=== PATIENT | male | born 1975 | race Native Hawaiian/Other Pacific Islander ===

== ENCOUNTER 2018-03-27 15:37 | Emergency (ER) | payer BC ==
--- NOTE | 2018-03-27 15:58 | ED Physician Documentation ---
PD HPI URI - Stated complaint Stated Complaint: COUGH/CONGESTION - Chief complaint Chief Complaint: Resp - History obtained from History obtained from: Patient - History of Present Illness Timing - onset: How many weeks ago (1-2) Timing duration: Weeks (1-2) Timing details: Gradual onset, Still present Associated symptoms: Nasal congestion, Rhinorrhea, Sinus pain, Productive cough , Dyspnea. No: Fever, Ear pain, Sore throat, Hemoptysis, Chest pain Contributing factors: No: Sick contact, Travel, COPD / asthma Recently seen: Clinic (3 weeks ago for sinus infection that mostly cleared and is worse again as well.) Review of Systems Constitutional: reports: Myalgias. denies: Fever, Chills Nose: reports: Congestion, Sinus pressure / pain. denies: Rhinorrhea / runny nose Throat: denies: Sore throat Cardiac: denies: Chest pain / pressure, Palpitations Respiratory: reports: Dyspnea, Cough, Wheezing GI: denies: Abdominal Pain, Nausea, Vomiting, Diarrhea Skin: denies: Rash, Lesions PD PAST MEDICAL HISTORY - Past Medical History Cardiovascular: None Respiratory: None Neuro: None Endocrine/Autoimmune: None - Past Surgical History Past Surgical History: No - Present Medications Home Medications: Ambulatory Orders Medication Instructions Recorded Confirmed Albuterol Sulf [Ventolin Hfa 2 - 3 puffs INH Q4HR PRN #1 inhaler 03/27/18 Inhaler] Benzonatate [Tessalon] 100 mg PO TID PRN #25 capsule 03/27/18 Dexamethasone [Decadron] 4 mg PO DAILY #5 tablet 03/27/18 Doxycycline Monohydrate 100 mg PO BID #14 tablet 03/27/18 - Allergies Allergies/Adverse Reactions: Allergies Allergy/AdvReac Type Severity Reaction Status Date / Time No Known Drug Allergies Allergy Verified 03/27/18 15:46 - Social History Does the pt smoke?: No Smoking Status: Never smoker Does the pt drink ETOH?: Yes Does the pt have substance abuse?: No - Immunizations Immunizations are current?: Yes - POLST Patient has POLST: No PD ED PE NORMAL - Vitals Vital signs reviewed: Yes - General General: Alert and oriented X 3, No acute distress, Well developed/nourished - HEENT HEENT: Ears normal, Pharynx benign - Neck Neck: Supple, no meningeal sign, No adenopathy - Cardiac Cardiac: RRR, No murmur - Respiratory Respiratory: Clear bilaterally - Abdomen Abdomen: Soft, Non tender - Derm Derm: Normal color, Warm and dry, No rash - Extremities Extremities: No tenderness to palpate, Normal ROM s pain, No edema, No calf tenderness / cord - Neuro Neuro: Alert and oriented X 3, No motor deficit, Normal speech Results - Vitals Vitals: Oxygen O2 Source Room air PD MEDICAL DECISION MAKING - ED course Complexity details: considered differential (has had prolonged URI symptoms with now productive sputum and worse cough. ), d/w patient - Sepsis Event Vital Signs: Oxygen O2 Source Room air Departure - Departure Disposition: Home, Self Care Clinical Impression: Acute bacterial bronchitis Condition: Stable Record reviewed to determine appropriate education?: Yes Instructions: ED Upper Resp Infec Abx Tx Prescriptions: Albuterol Sulf [Ventolin Hfa Inhaler] 2 - 3 puffs INH Q4HR PRN #1 inhaler PRN Reason: Shortness Of Air/Wheezing Benzonatate [Tessalon] 100 mg PO TID PRN #25 capsule PRN Reason: Cough Dexamethasone [Decadron] 4 mg PO DAILY #5 tablet Doxycycline Monohydrate 100 mg PO BID #14 tablet Comments: Use albuterol inhaler 2 puffs or 3 puffs 4 times a day for the next 7-10 days and then extra times if needed for wheezing and cough. Decadron steroid anti- inflammatory daily for 5 days. Doxycycline twice daily for a week for the infection. Add Tessalon if needed for cough. Drink lots of fluids. Recheck if not improving over the next several days to week. Discharge Date/Time: 03/27/18 16:35
[2018-03-27 16:37] VITALS: BP 136/99
== END 2018-03-27 16:35 | disposition home or self-care (01) ==
LOC: ED 15:37
DX: J20.8 Acute bronchitis due to other specified organisms (principal); B96.89 Other specified bacterial agents as the cause of diseases classified elsewhere
CPT/HCPCS: 99283

== ENCOUNTER 2018-12-02 16:10 | Emergency (ER) | payer BC ==
[2018-12-02 16:34] LABS: BILIRUBIN,URINE NEGATIVE (NEGATIVE); GLUCOSE, URINE (UA) 100 mg/dL (NEGATIVE); KETONES,URINE (UA) NEGATIVE (NEGATIVE); LEUKOCYTE ESTERASE, URINE NEGATIVE (NEGATIVE); NITRITE,URINE NEGATIVE (NEGATIVE); OCCULT BLOOD,URINE SMALL (NEGATIVE); PROTEIN,URINE NEGATIVE (NEGATIVE); UROBILINOGEN,URINE 0.2 (NORMAL) E.U./dL (NORMAL)
[2018-12-02] MEDS ORDERED: SODIUM CHLORIDE 0.9% 1,000 ML IV ONE (16:35)
--- NOTE | 2018-12-02 16:40 | ED Physician Documentation ---
History of Present Illness - Stated complaint Stated Complaint: RT SIDE PX - Chief complaint Chief Complaint: Abd Pain - History obtained from History obtained from: Patient - Additonal information Additional information: Patient is a 42-year-old male with history of nephrolithiasis. Patient reports several hour ago onset of right-sided flank and abdominal pain without associated vomiting, diarrhea or stool changes, urinary changes, fever, chills. Patient does report mild nausea. Patient states symptoms are similar to previous. Patient denies any particular worsening or improving interventions for symptoms. Review of Systems Constitutional: denies: Fever GI: reports: Abdominal Pain, Nausea. denies: Vomiting, Diarrhea : denies: Dysuria Musculoskeletal: reports: Back pain PD PAST MEDICAL HISTORY - Past Medical History Past Medical History: Yes Cardiovascular: None Respiratory: None Neuro: None Endocrine/Autoimmune: None : Kidney stones - Past Surgical History Past Surgical History: No - Present Medications Home Medications: Ambulatory Orders Medication Instructions Recorded Confirmed No Known Home Medications 12/02/18 12/02/18 - Allergies Allergies/Adverse Reactions: Allergies Allergy/AdvReac Type Severity Reaction Status Date / Time No Known Drug Allergies Allergy Verified 12/02/18 16:20 - Social History Does the pt smoke?: No Smoking Status: Never smoker Does the pt drink ETOH?: Yes Does the pt have substance abuse?: No - Immunizations Immunizations are current?: Yes - POLST Patient has POLST: No PD ED PE NORMAL - General General: Alert and oriented X 3, No acute distress, Well developed/nourished - HEENT HEENT: Atraumatic - Cardiac Cardiac: RRR, No murmur - Respiratory Respiratory: No respiratory distress - Abdomen Abdomen: Normal bowel sounds, Soft, Non distended, Other (Mild right upper quadrant tenderness without Haywood sign or rebound present) - Back Back: Other (Positive right CVA tenderness) - Derm Derm: Normal color, Warm and dry, No rash - Extremities Extremities: No deformity - Neuro Neuro: Alert and oriented X 3, No motor deficit, No sensory deficit - Psych Psych: Normal mood, Normal affect Results - Vitals Vitals: Vital Signs - 24 hr 12/02/18 12/02/18 12/02/18 16:19 17:30 19:04 Temperature 37 C 36.6 C Heart Rate 112 H 79 80 Respiratory 20 24 16 Rate Blood Pressure 127/89 H 111/76 110/78 O2 Saturation 98 98 98 Oxygen O2 Source Room air - Labs Labs: Laboratory Tests 12/02/18 12/02/18 12/02/18 16:30 16:45 16:45 WBC 5.4 RBC 5.16 Hgb 15.6 Hct 46.2 MCV 89.6 MCH 30.2 MCHC 33.7 RDW 12.1 Plt Count 215 MPV 6.8 L Neut # (Auto) 2.9 Lymph # (Auto) 1.7 [place] # (Auto) 0.5 Eos # (Auto) 0.2 Baso # (Auto) 0.0 Absolute Nucleated RBC 0.00 Nucleated RBC % 0.0 Sodium 138 Potassium 3.4 L Chloride 104 Carbon Dioxide 25 Anion Gap 9.0 BUN 19 Creatinine 1.1 Estimated GFR (MDRD) 74 L Glucose 138 H Calcium 8.9 Urine Color YELLOW Urine Clarity HAZY Urine pH 7.0 Ur Specific [place] 1.015 Urine Protein NEGATIVE Urine Glucose (UA) 100 H Urine Ketones NEGATIVE Urine Occult Blood SMALL H Urine Nitrite NEGATIVE Urine Bilirubin NEGATIVE Urine Urobilinogen 0.2 (NORMAL) Ur Leukocyte Esterase NEGATIVE Urine RBC 0-5 Urine WBC 0-3 Ur Squamous Epith Cells NONE SEEN Urine Bacteria None Seen Ur Microscopic Review INDICATED Urine Culture Comments NOT INDICATED PD MEDICAL DECISION MAKING - ED course Complexity details: considered differential, d/w patient ED course: Concerning for nephrolithiasis this given patient's history of nephrolithiasis, symptomatology, and physical exam. Vital signs within normal limits upon arrival except for mild tachycardia, which was not present on exam. Feel this could be related to discomfort, however, patient declines pain medications. Physical exam reveals right CVA tenderness that radiates to right abdomen. I have lower suspicion for other intra-abdominal pathology such as gallstones, liver disease, small bowel obstruction, AAA, diverticulitis, but considered. Also have lower suspicion for testicular/groin pathology, but considered. Urinalysis obtained which was relatively unremarkable except for presence of glucose. Lab work also obtained, which was relatively unremarkable except for elevated glucose. CT without contrast obtained which revealed no stones on the right and small, nonobstructing stones on the left. No other significant pathology noted. Discussed results and recommendations with patient including findings of glucose elevation and glucose in the urine and directed patient to primary care physician for follow-up and further testing. Also discussed other supportive cares, return precautions, appropriate follow-up for his back and abdominal pain. At this time, feel patient is safe to discharge home and patient is agreeable to this plan. Departure - Departure Disposition: 01 Home, Self Care Clinical Impression: Abdominal pain Condition: Good Instructions: ED Abdominal Pain Unkn Cause Male Follow-Up: your,doctor [Other] - Within 3 Days Comments: Recommend avoidance of alcohol, tobacco. May use ibuprofen/Tylenol for any additional discomfort. Recommend hydration with Powerade/Gatorade and advancing diet as tolerated. Please follow-up with primary care physician in the next 2- 3 days and return to ED sooner if explains worsening symptoms or other concerns. Discharge Date/Time: 12/02/18 19:03
[2018-12-02 16:41] LABS: CLARITY,URINE HAZY (CLEAR)
[2018-12-02 16:45] LABS: BACTERIA,URINE None Seen /HPF (None Seen); RBC,URINE 0-5 /HPF (0-5); SQUAMOUS EPITHELIAL CELL,UR NONE SEEN (<= Few)
[2018-12-02 17:03] LABS: BASOPHILS % (AUTO) 0.6 %; EOSINOPHILS # (AUTO) 0.2 10^3/uL (0.0-0.7); EOSINOPHILS % (AUTO) 3.8 %; HGB - HEMOGLOBIN 15.6 g/dL (14.0-18.0); LYMPHOCYTES # (AUTO) 1.7 10^3/uL (1.5-3.5); LYMPHOCYTES % (AUTO) 31.2 %; MEAN CORPUSCULAR HEMOGLOBIN 30.2 pg (27.0-31.0); MEAN CORPUSCULAR HGB CONC 33.7 g/dL (32.0-36.0); MEAN CORPUSCULAR VOLUME 89.6 fL (80.0-94.0); MEAN PLATELET VOLUME 6.8 fL (7.4-11.4); MONOCYTES # (AUTO) 0.5 10^3/uL (0.0-1.0); MONOCYTES % (AUTO) 9.8 %; NEUTROPHILS # (AUTO) 2.9 10^3/uL (1.5-6.6); NEUTROPHILS % (AUTO) 54.6 %; PLT - PLATELET COUNT 215 10^3/uL (130-450); RED BLOOD COUNT 5.16 10^6/uL (4.70-6.10); RED CELL DISTRIBUTION WIDTH 12.1 % (12.0-15.0); WHITE BLOOD COUNT 5.4 x10^3/uL (4.8-10.8)
[2018-12-02 17:13] LABS: CALCIUM 8.9 mg/dL (8.5-10.3); CREATININE 1.1 mg/dL (0.6-1.2)
--- NOTE | 2018-12-02 18:50 | CT Report ---
Reason: kidney stone Procedure Date: 12/02/2018 Accession Number: [id number] / [id number] Procedure: CT - Abdomen/Pelvis WO CPT Code: FULL RESULT: EXAM: CT ABDOMEN AND PELVIS (CT KUB) EXAM DATE: 12/02/2018 05:14 PM. CLINICAL HISTORY: Kidney stone. Right flank pain. COMPARISONS: None. TECHNIQUE: Routine axial helical CT imaging was performed through the abdomen and pelvis without IV contrast. Reconstructions: Coronal and sagittal. In accordance with CT protocol optimization, one or more of the following dose reduction techniques were utilized for this exam: automated exposure control, adjustment of mA and/or KV based on patient size, or use of iterative reconstructive technique. FINDINGS: Lung Bases: Unremarkable. Right Kidney/Ureter: No stones, hydronephrosis, or hydroureter. No perinephric fat stranding. Left Kidney/Ureter: Nonobstructing 2 mm stone. No ureteral stones, hydronephrosis, or hydroureter. No perinephric fat stranding. Other Solid Organs: Noncontrast images of the solid organs are grossly unremarkable. Gallbladder/Bile Ducts: Unremarkable. Peritoneal Cavity: No free fluid, free air or lia adenopathy. Bowel is grossly unremarkable. Pelvic Organs: No bladder stones or wall thickening. Noncontrast images of the visualized pelvic organs are unremarkable. Vasculature: Unremarkable. Other: None. IMPRESSION: 1. Small nonobstructing left renal stone. 2. No ureteral stone or hydronephrosis. RADIA
[2018-12-02 19:04] VITALS: BP 110/78
== END 2018-12-02 19:03 | disposition home or self-care (01) ==
LOC: ED 16:10
DX: R10.9 Unspecified abdominal pain (principal); N20.0 Calculus of kidney; R81 Glycosuria; R73.9 Hyperglycemia, unspecified; Z87.442 Personal history of urinary calculi
CPT/HCPCS: 36415; 74176; 80048; 81001; 81003; 85025; 87086; 96360; 99283

== ENCOUNTER 2019-06-25 17:13 | Emergency (ER) | payer BC ==
[2019-06-25] MEDS ORDERED: KETOROLAC 30 MG/ML VIAL IVP STA (18:54)
[2019-06-25] MEDS ORDERED: SODIUM CHLORIDE 0.9% 1,000 ML IV ONE (18:54)
--- NOTE | 2019-06-25 18:55 | ED Physician Documentation ---
PD HPI HEADACHE - Stated complaint Stated Complaint: CAVAZOS - Chief complaint Chief Complaint: Neuro - History obtained from History obtained from: Patient - History of Present Illness Timing - onset: How many years ago (2) Timing - duration: Weeks (2) Timing - details: Gradual onset, Still present Location: Left Quality: Other (Pulsating) Associated symptoms: Stiff neck (Complains of his neck being stiff when he has the headache), Eye pain, Vision changes. No: Fever, Nausea, Vomiting, Weakness, Numbness, Syncope Worsened by: Light, Moving Recently seen: Not recently seen - Additional information Additional information: This is a 43-year-old man who presents with complaints that he has had a chronic headache for the past 2 years since he was seen in a medical facility in [facility] and diagnosed with a sinus infection. He says they put him on some antibiotics but he never followed up after that. Over the past 2 weeks the headache is gotten more severe happening every day he initially said it was constant but the headache is currently completely gone he just has his constant pain across the bridge of his nose that is been there for months. Feels like there is a pulsating behind the left eyeball and sometimes he has pain in the right eye and his vision gets blurry.. He says is been taking Tylenol on a least a daily basis. 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 He complains of a lot of postnasal drip and clear runny nose the nose is stuffy and sometimes he has traces of blood when he clears the mucus out. Occasionally he will pull yellow mucus into his throat and spit it out. Rates the pain across his nose right now is a 9 out of 10 and feels a "poking" up into the left eye from the side of his nose. He has not had fever. Denies nausea or vomiting. He complains of some heartburn that is a chronic issue. He denies any history of MRSA but says that he is newly developed hives after he exercises since he had a sinus infection. He also complains of pain down the right leg that he is treating with a chiropractor. He does occasionally drink alcohol denies use of other drugs and lives with a significant other. Review of Systems Constitutional: denies: Fever Eyes: reports: Other (Occasional blurry) Ears: denies: Ear pain, Drainage/discharge Nose: reports: Rhinorrhea / runny nose, Congestion, Sinus pressure / pain Throat: reports: Sore throat GI: reports: Other (Heartburn). denies: Nausea, Vomiting Skin: reports: Rash (Hives) Musculoskeletal: reports: Neck pain PD PAST MEDICAL HISTORY - Past Medical History Cardiovascular: None Respiratory: None Neuro: None Endocrine/Autoimmune: None : Kidney stones - Past Surgical History Past Surgical History: No - Present Medications Home Medications: Ambulatory Orders Medication Instructions Recorded Confirmed Mupirocin 0.5 inch TP BID #1 tube 06/25/19 - Allergies Allergies/Adverse Reactions: Allergies Allergy/AdvReac Type Severity Reaction Status Date / Time No Known Drug Allergies Allergy Verified 06/25/19 17:24 - Social History Does the pt smoke?: No Smoking Status: Never smoker Does the pt drink ETOH?: Yes Does the pt have substance abuse?: No - Immunizations Immunizations are current?: Yes - POLST Patient has POLST: No PD ED PE NORMAL - Vitals Vital signs reviewed: Yes - General General: Alert and oriented X 3, No acute distress, Well developed/nourished, Other (Lying in a dark room with his eyes closed) - HEENT HEENT: Atraumatic, PERRL, EOMI, Ears normal, Moist mucous membranes, Pharynx benign, Other (Pain with palpation over the left nostril. There is no swelling. There is no blood evident in the nostrils bilaterally. 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 # (Auto) 0.6 Eos # (Auto) 0.2 Baso # (Auto) 0.0 Absolute Nucleated RBC 0.00 Nucleated RBC % 0.0 Sodium 140 Potassium 3.9 Chloride 106 Carbon Dioxide 26 Anion Gap 8.0 BUN 18 Creatinine 0.8 Estimated GFR (MDRD) 107 Glucose 126 H Calcium 9.2 - Rads (name of study) ct head Radiology: See rad report PD MEDICAL DECISION MAKING - ED course Complexity details: reviewed results, re-evaluated patient, d/w patient ED course: CBC and BMP are normal. The head CT was negative. Patient was initially given a liter of fluids and 30 mg of Toradol IV when I went by the room he was still curled up on his side and stated that the headache it eased off a little bit it was about a 7 out of 10. He was then medicated with Reglan, Decadron, IV Tylenol and p.o. Flexeril. I am suspicious he may actually have an inranasal lesion and plan to treat with Mupiroin intra-nasal. Recommend f/u with primary provider for further work-up of his chronic headaches. 2230: Patient fell asleep and when he was awakened he was completely pain-free. Recommend he follow-up with a primary care provider we discussed how to use the intranasal mupirocin. Departure - Departure Disposition: 01 Home, Self Care Clinical Impression: Headache Qualifiers: Headache type: unspecified Headache chronicity pattern: chronic headache Intractability: not intractable Qualified Code(s): R51 - Headache Condition: Good Instructions: ED Cephalgia Unspecified Follow-Up: [facility] [Provider Group] Prescriptions: Mupirocin 0.5 inch TP BID #1 tube Comments: Use the [place] ointment twice a day for 5 days. May take ibuprofen if needed for the headache. Establish with a primary care provider for further work-up and management of your headaches. Forms: Activity restrictions Discharge Date/Time: 06/25/19 22:44
[2019-06-25 19:33] LABS: BASOPHILS % (AUTO) 0.5 %; EOSINOPHILS # (AUTO) 0.2 10^3/uL (0.0-0.7); HGB - HEMOGLOBIN 15.1 g/dL (14.0-18.0); LYMPHOCYTES # (AUTO) 1.9 10^3/uL (1.5-3.5); LYMPHOCYTES % (AUTO) 34.2 %; MEAN CORPUSCULAR HEMOGLOBIN 30.4 pg (27.0-31.0); MEAN CORPUSCULAR VOLUME 92.3 fL (80.0-94.0); MEAN PLATELET VOLUME 8.7 fL (7.4-11.4); MONOCYTES # (AUTO) 0.6 10^3/uL (0.0-1.0); MONOCYTES % (AUTO) 10.9 %; NEUTROPHILS # (AUTO) 2.8 10^3/uL (1.5-6.6); NEUTROPHILS % (AUTO) 50.2 %; PLT - PLATELET COUNT 197 10^3/uL (130-450); RED BLOOD COUNT 4.96 10^6/uL (4.70-6.10); RED CELL DISTRIBUTION WIDTH 11.4 % (12.0-15.0); WHITE BLOOD COUNT 5.5 x10^3/uL (4.8-10.8)
[2019-06-25 19:41] LABS: CALCIUM 9.2 mg/dL (8.5-10.3); CREATININE 0.8 mg/dL (0.6-1.2)
--- NOTE | 2019-06-25 19:50 | CT Report ---
Reason: headache and sinus pressure Procedure Date: 06/25/2019 Accession Number: [id number] / [id number] Procedure: CT - HEAD WO CPT Code: FULL RESULT: EXAM: CT HEAD EXAM DATE: 06/25/2019 07:07 PM. CLINICAL HISTORY: Headache and sinus pressure. COMPARISON: None. TECHNIQUE: Multiaxial CT images were obtained from the foramen magnum to the vertex. Reformats: Sagittal and coronal. IV contrast: None. In accordance with CT protocol optimization, one or more of the following dose reduction techniques were utilized for this exam: automated exposure control, adjustment of mA and/or KV based on patient size, or use of iterative reconstructive technique. FINDINGS: PARENCHYMA: No acute hemorrhage, transcortical infarction or mass. Normal lew-white differentiation. EXTRA-AXIAL SPACES: No extra-axial fluid collections. No midline shift. VENTRICLES/SULCI: Normal for patient age. VASCULAR STRUCTURES: The visible vascular structures are unremarkable. SINUSES: The visible paranasal sinuses and mastoid air cells are unremarkable. ORBITS: Unremarkable. BONES: No displaced acute calvarial fracture. OTHER: None. IMPRESSION: No acute intracranial findings. RADIA
[2019-06-25] MEDS ORDERED: DEXAMETHASONE 10 MG/ML VIAL IVP STA (21:00)
[2019-06-25] MEDS ORDERED: ACETAMINOPHEN 1,000 MG/100 ML 100 ML IV STA (21:01)
[2019-06-25] MEDS ORDERED: METOCLOPRAMIDE 10 MG/2 ML VIAL IVP STA (21:01)
[2019-06-25] MEDS ORDERED: ACETAMINOPHEN 325 MG TABLET PO STA (21:01)
[2019-06-25] MEDS ORDERED: CYCLOBENZAPRINE 10 MG TABLET PO STA (21:02)
[2019-06-25 22:25] VITALS: BP 102/68
== END 2019-06-25 22:44 | disposition home or self-care (01) ==
LOC: ED 17:13
DX: R51 Headache (principal)
CPT/HCPCS: 36415; 70450; 80048; 85025; 96361; 96365; 96375; 99284; A9270; J0131; J2765

== ENCOUNTER 2020-03-04 16:35 | Observation (INO) | payer BC ==
[2020-03-04] MEDS ORDERED: ASPIRIN CHEW 81 MG TABLET PO STA (16:50)
--- NOTE | 2020-03-04 16:51 | ED Physician Documentation ---
History of Present Illness - Stated complaint Stated Complaint: CP - Chief complaint Chief Complaint: Cardiac - History obtained from History obtained from: Patient (44-year-old gentleman who has had some elevated blood pressure readings in the past but not on antihypertensives. He has had 2 episodes of chest pain last 24 hours, one was last night and lasted about an hour. Left-sided chest pain causing neck stiffness and radiating to the right arm. He was short of breath with it. Then he had another episode today while driving. 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 He also had some similar episodes but milder last month.) Review of Systems Ten Systems: 10 systems reviewed and negative Constitutional: denies: Fever, Chills Cardiac: reports: Chest pain / pressure. denies: Palpitations, Pedal edema, Calf pain Respiratory: reports: Dyspnea. denies: Cough, Hemoptysis, Wheezing PD PAST MEDICAL HISTORY - Past Medical History Cardiovascular: None Respiratory: None Neuro: None Endocrine/Autoimmune: None GI: GERD : Kidney stones HEENT: None Psych: None Musculoskeletal: None Derm: None - Past Surgical History Past Surgical History: No - Present Medications Home Medications: Ambulatory Orders Medication Instructions Recorded Confirmed Mupirocin 0.5 inch TP BID #1 tube 06/25/19 - Allergies Allergies/Adverse Reactions: Allergies Allergy/AdvReac Type Severity Reaction Status Date / Time No Known Drug Allergies Allergy Verified 03/04/20 16:39 - Social History Does the pt smoke?: No Smoking Status: Never smoker Does the pt drink ETOH?: Yes Does the pt have substance abuse?: No - Family History Family history: reports: Other (Father had hypertension but of esophageal cancer) - Immunizations Immunizations are current?: Yes Immunizations: TDAP >10years/unknown - POLST Patient has POLST: No PD ED PE NORMAL - Vitals Vital signs reviewed: Yes - General General: Alert and oriented X 3, No acute distress - HEENT HEENT: PERRL, EOMI - Neck Neck: Supple, no meningeal sign, No bony TTP - Cardiac Cardiac: RRR, No murmur - Respiratory Respiratory: No respiratory distress, Clear bilaterally - Abdomen Abdomen: Normal bowel sounds, Soft, Non tender - Back Back: No CVA TTP, No spinal TTP - Derm Derm: Normal color, Warm and dry - Extremities Extremities: No edema, No calf tenderness / cord - Neuro Neuro: Alert and oriented X 3, Normal speech - Psych Psych: Normal mood, Normal affect Results - Vitals Vitals: Vital Signs - 24 hr 03/04/20 16:39 Temperature 36.3 C L Heart Rate 86 Respiratory 16 Rate Blood Pressure 165/104 H O2 Saturation 99 Oxygen O2 Source Room air - EKG (time done) 1649 Rate: Rate (enter#) (78) Rhythm: NSR [place]: Normal Intervals: Normal [place] QRS: Normal Ischemia: Non specific changes Computer interpretation: Agree with computer - Labs Labs: Laboratory Tests 03/04/20 03/04/20 03/04/20 16:55 16:55 16:55 WBC 6.0 RBC 5.22 Hgb 16.2 Hct 48.0 MCV 92.0 MCH 31.0 MCHC 33.8 RDW 11.4 L Plt Count 217 MPV 8.6 Neut # (Auto) 3.4 Lymph # (Auto) 1.7 [place] # (Auto) 0.6 Eos # (Auto) 0.3 Baso # (Auto) 0.0 Absolute Nucleated RBC 0.00 Nucleated RBC % 0.0 Sodium 138 Potassium 3.6 Chloride 103 Carbon Dioxide 25 Anion Gap 10.0 BUN 19 Creatinine 1.1 Estimated GFR (MDRD) 73 L Glucose 106 H Calcium 9.1 Total Bilirubin 0.6 AST 32 ALT 58 Alkaline Phosphatase 49 Troponin I High Sens < 2.3 L Total Protein 7.8 Albumin 4.5 Globulin 3.3 Albumin/Globulin Ratio 1.4 Lipase 32 PD MEDICAL DECISION MAKING - ED course ED course: 44-year-old gentleman presents with concerning chest pain episode that actually are fairly typical, and worrisome for unstable angina. That said objectively his work-up he is here is negative without evidence of ischemia on EKG or troponin. He received aspirin here and remained pain-free while in the department. Given the history and heart score of 4 he will be placed in observation for further evaluation and treatment and Dr. Mueller accepts at 5:37 PM. Departure - Departure Disposition: ED Place in Observation Clinical Impression: Chest pain Qualifiers: Chest pain type: unspecified Qualified Code(s): R07.9 - Chest pain, unspecified Condition: Stable Discharge Date/Time: 03/04/20 18:42
[2020-03-04 17:07] LABS: BASOPHILS % (AUTO) 0.3 %; EOSINOPHILS # (AUTO) 0.3 10^3/uL (0.0-0.7); EOSINOPHILS % (AUTO) 4.3 %; HGB - HEMOGLOBIN 16.2 g/dL (14.0-18.0); LYMPHOCYTES # (AUTO) 1.7 10^3/uL (1.5-3.5); LYMPHOCYTES % (AUTO) 27.8 %; MEAN CORPUSCULAR HGB CONC 33.8 g/dL (32.0-36.0); MEAN PLATELET VOLUME 8.6 fL (7.4-11.4); MONOCYTES # (AUTO) 0.6 10^3/uL (0.0-1.0); MONOCYTES % (AUTO) 10.3 %; NEUTROPHILS # (AUTO) 3.4 10^3/uL (1.5-6.6); PLT - PLATELET COUNT 217 10^3/uL (130-450); RED BLOOD COUNT 5.22 10^6/uL (4.70-6.10); RED CELL DISTRIBUTION WIDTH 11.4 % (12.0-15.0)
--- NOTE | 2020-03-04 17:11 | XRAY Report ---
PROCEDURE: Chest 1 View X-Ray INDICATIONS: Chest Pain TECHNIQUE: One view of the chest was acquired. COMPARISON: None FINDINGS: Surgical changes and devices: None. Lungs and pleura: No pleural effusions or pneumothorax. Lungs are clear. Mediastinum: Mediastinal contours appear normal. Heart size is normal. Bones and chest wall: No suspicious bony lesions. Overlying soft tissues appear unremarkable. IMPRESSION: No acute pulmonary process. Reviewed by: Nanda Simental MD on 03/04/2020 5:10 PM PDT Approved by: Nanda Simental MD on 03/04/2020 5:10 PM PDT Station ID: [id number]
[2020-03-04 17:20] LABS: ALBUMIN 4.5 g/dL (3.2-5.5); ALBUMIN/GLOBULIN RATIO 1.4 (1.0-2.2); BILIRUBIN,TOTAL 0.6 mg/dL (0.2-1.0); CALCIUM 9.1 mg/dL (8.5-10.3); CREATININE 1.1 mg/dL (0.6-1.2); TOTAL PROTEIN 7.8 g/dL (6.7-8.2)
[2020-03-04] MEDS ORDERED: ONDANSETRON 4 MG/2 ML VIAL IVP PRN (17:46)
[2020-03-04] MEDS ORDERED: SODIUM CHLORIDE FLUSH 0.9% 10 ML SYRINGE IVP PRN (17:46)
[2020-03-04] MEDS ORDERED: NITROGLYCERIN SL 0.4 MG TABLET SL STA (17:50)
[2020-03-04] MEDS ORDERED: amLODIPine 5 MG TABLET PO STA (17:51)
--- NOTE | 2020-03-04 20:25 | HISTORY & PHYSICAL EXAMINATION ---
Chief Complaint - Chief Complaint Chief Complaint: Chest pain History of Present Illness - Admitted From Admitted From:: Home - History Obtained From Records Reviewed: Yes History obtained from: Patient, ER Physician, EMR - History of Present Illness HPI Comment/Other: This is a 44-year-old male with a past medical history significant for GERD who presents today complaining of chest pain. He states he had pain located over the left side of his chest on and off for the past month. The pain would come on at random times and lasts for 30 to 45 minutes. He reports no aggravating or alleviating factors. He reports having a history of GERD for which he takes Tums but states that this pain feels different. He states that today, the pain started while he was driving and felt like pressure over the left side of his chest that radiated to his neck as well as right arm. He reported associated numbness in his right upper extremity. He also felt lightheaded and short of breath. He states prior to arrival to the emergency department, his chest pain had already resolved on its own. He reports no family history of heart disease. He does not smoke but does chew tobacco on a daily basis for the past 10 years. He reports he was relatively active up until about 3 to 4 months ago due to the coronavirus. He has been quite sedentary recently. He reports no history of diabetes. He states he has been told that he has high cholesterol in the past and he began walking 30 minutes a day. He does not take any medications. He reports no prior history of hypertension. In the emergency department, his blood pressure was elevated at 165/104. His vitals otherwise unremarkable. His labs were also unremarkable including troponin. His EKG shows sinus rhythm with T wave inversions in leads III and flattening of T waves in aVF. Given his presentation, medicine was consulted for admission. History - Past Medical History Cardiovascular: reports: None Respiratory: reports: None Neuro: reports: None Endocrine/Autoimmune: reports: None GI: reports: GERD : reports: Kidney stones HEENT: reports: None Psych: reports: None Musculoskeletal: reports: None Derm: reports: None MRSA Hx?: No - Past Surgical History General: reports: Colonoscopy, EGD - Family & Social History Family History Comment/Other: Reports his father had hypertension. Denies any other family history. Denies a history of coronary artery disease or diabetes. Living arrangement: At home Living Situation: With spouse/s.o. Social History Notes: He lives at home with his and son. 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 He chews 3 cans of tobacco on a daily basis for the past 10 years. Denies any smoking, alcohol, drug use. - Substance History Use: Uses substance without health or social issues: Tobacco - POLST Patient has POLST: No Meds/Allgy - Home Medications Home Medications: Ambulatory Orders Medication Instructions Recorded Confirmed Mupirocin 0.5 inch TP BID #1 tube 06/25/19 - Allergies Allergies/Adverse Reactions: Allergies Allergy/AdvReac Type Severity Reaction Status Date / Time No Known Drug Allergies Allergy Verified 03/04/20 16:39 Review of Systems - Constitutional Constitutional: denies: Fatigue, Fever, Chills, Weakness, Poor appetite - Eyes Eyes: denies: Pain - Ears, Nose & Throat Ears, Nose & Throat: denies: Nasal discharge, Nasal congestion, Sore throat - Cardiovascular Cariovascular: reports: Palpitations, Chest pain, Lightheadedness, Decr. exercise tolerance. denies: Edema, Syncope, Exertional dyspnea - Respiratory Respiratory: reports: SOB at rest, SOB with exertion. denies: Cough - Gastrointestinal Gastrointestinal: reports: Reflux/heartburn. denies: Abdominal pain, Consti pation, Diarrhea, Nausea, Vomiting - Genitourinary Genitourinary: denies: Dysuria, Frequency, Urgency - Musculoskeletal Musculoskeletal: reports: Back pain. denies: Muscle pain - Integumentary Integumentary: denies: Rash - Neurological Neurological: reports: Numbness. denies: General weakness, Focal weakness - Hematologic/Lymphatic Hematologic/Lymphatic: denies: Anemia, Bleeding tendencies - All Other Systems All Other Systems: reports: Reviewed and negative Prior Level of Functionality: He is independent with his ADLs. Exam - Vital Signs Reviewed Vital Signs: Yes Vital Signs: Vital Signs x48h Temp Pulse Pulse Resp BP BP Pulse Ox 03/04/20 20:00 36.4 C L 83 18 149/90 H 100 03/04/20 18:55 36.5 C 82 18 121/82 H 98 03/04/20 18:00 74 18 163/107 H 100 03/04/20 16:39 36.3 C L 86 16 165/104 H 99 - Physical Exam General Appearance: positive: No acute distress, Alert Eyes Bilateral: positive: Normal inspection ENT: positive: ENT inspection nml Neck: positive: Nml inspection Respiratory: positive: No respiratory distress. negative: Wheezes, Rales, Rhonchi Cardiovascular: positive: Regular rate & rhythm, No murmur. negative: Tachycardia, Bradycardia, Systolic murmur Abdomen: positive: Non-tender, No distention. negative: Tenderness, Guarding, Rebound Skin: positive: No rash, Warm, Dry Extremities: positive: Full ROM, No pedal edema Neurologic/Psychiatric: positive: Oriented x3, Motor nml. negative: Disoriented to person, Disoriented to place, Disoriented to time Conclusion/Plan - Problem List (1) Chest pain Conclusion/Plan: His history is suspicious for heart disease and he does have a heart score of 4. His EKG does show T inversions in leads III and flattening in aVF otherwise is unremarkable. Troponin is negative. His chest pain resolved prior to presentation to the emergency department. He did receive aspirin and nitroglycerin. Given these findings, we will observe him overnight and make him n.p.o. at midnight for stress test in the morning. Start aspirin 81 mg daily. Check echocardiogram. Check lipid panel and A1c. Monitor on telemetry. Qualifiers: Chest pain type: unspecified Qualified Code(s): R07.9 - Chest pain, unspecified (2) Hypertension Conclusion/Plan: Blood pressure is elevated with systolic in the 160s and remains elevated in the 140s. We will start him on low-dose amlodipine and continue to monitor. (3) GERD (gastroesophageal reflux disease) Conclusion/Plan: Continue with Tums as needed. - Lab Results Lab results reviewed: Yes Fish Bones: 03/04/20 16:55 03/04/20 16:55 - Diagnostic Imaging Results Diagnostic Imaging Results: positive: Final report reviewed - EKG Results EKG Interpreted Independently: Yes EKG Findings: Sinus rhythm with T wave inversions in leads III flattening of T waves in aVF. Core Measures - Anticipated LOS I expect patient to be DC'd or transferred within 96 hours.: Yes - Issues Hospital Issues and Management Plan: 44-year-old male presents with chest pain and heart score of 4. Will be admitted for observation and stress test. - DVT/VTE - Prophylaxis VTE/DVT Device ordered at admit?: Yes VTE/DVT Prophylaxis med ordered at admit?: No Not Ordered - Medical Reason: Not indicated
[2020-03-04] MEDS ORDERED: CALCIUM CARBONATE CHEW 500 MG TABLET PO PRN (20:51)
[2020-03-04] MEDS: FAMOTIDINE 20 MG TABLET PO SCH (21:07)
[2020-03-04] MEDS: ACETAMINOPHEN 325 MG TABLET PO PRN (21:07)
[2020-03-05] MEDS: SODIUM CHLORIDE FLUSH 0.9% 10 ML SYRINGE IVP SCH ×3 (00:57→18:36)
[2020-03-05 06:13] LABS: HB2 TOTAL 15.9 g/dL; HEMOGLOBIN A1C 0.61 g/dL; HEMOGLOBIN A1C % 5.7 % (4.6-6.2)
[2020-03-05 06:24] LABS: CHOL/HDL RATIO 4.6 (<5.0); CHOLESTEROL 227 mg/dL; HDL CHOLESTEROL 49 mg/dL; LDL CHOLESTEROL,CALCULATED 159 mg/dL; LDL/HDL RATIO 3.2 (<3.6); VLDL CHOLESTEROL 19 mg/dL
[2020-03-05] MEDS: FAMOTIDINE 20 MG TABLET PO SCH (08:09)
[2020-03-05] MEDS ORDERED: ASPIRIN EC 81 MG TABLET PO SCH (09:00)
--- NOTE | 2020-03-05 11:09 | PHARMACY PROGRESS NOTE ---
- Best Possible Medication History Admit Date and Time: 03/04/20 1746 Processed by: Pharmacy Medication History completed: Yes Patient Interview: Completed Secondary Source(s): Pharmacy records, Insurance records As the person ultimately responsible for medication therapy, providers are able to order a medication from an existing home medication list in [facility] via the "Reconcile Routine" prior to Confirmation of that medication by family support worker. Such practice is discouraged except when the physician, in their clinical judgment, deems that a medical need exists for a medication without regard to previous use.
[2020-03-05] MEDS: ACETAMINOPHEN 325 MG TABLET PO PRN (16:59)
--- NOTE | 2020-03-05 17:53 | Nuclear Medicine Report ---
PROCEDURE: Rest and exercise myocardial perfusion SPECT with gated imaging and ejection fraction INDICATIONS: Chest pain RADIOPHARMACEUTICAL: 8.3 mCi Tc-99m sestamibi IV at rest and 25.5 mCi Tc-99m sestamibi IV at peak ex ercise. Dmp-con-czidvflj was performed. TECHNIQUE: Radiopharmaceutical was injected at peak stress test, and also at rest. SPECT images wer e obtained. SPECT myocardial perfusion images were displayed in short axis, horizontal long axis, an d vertical long axis views. Gated images were reviewed using Auto[employer]ANT software. COMPARISON: None available. FINDINGS: Raw data: There is good myocardial labeling by radiotracer. No significant motion artifacts. Lung- to-heart ratio is 0.27 (normal is less than 0.38 for tetrafosmin tracer). Left ventricle function: Gated images demonstrate normal left ventricle wall thickening. No segment al wall motion abnormality. No transient ischemic dilation; TID is 0.91 (normal less than 1.3). The left ventricle resting end-diastolic volume is 60 mL. Left ventricle stress ejection fraction is >7 0%; normal values are above 45%. Myocardial perfusion: There is normal distribution of activity in the left and right ventricular osmin cardium. No fixed or reversible perfusion defects. IMPRESSION: 1. Normal myocardial perfusion images. No perfusion defect to suggest myocardial ischemia or infarct. 2. Normal left ventricular volume and systolic function. PQRS ATTESTATIONS: Measure 322 - Is this imaging test primarily performed on a low-risk surgery patient for preoperative evaluation within 30 days preceding their low-risk non-cardiac surgery? Low-risk surgery is defined as cardiac or myocardial infarction less than 1%, including (but not limited to) endoscopic pr ocedures, superficial procedures, cataract surgery, and excisional breast surgery: Answer: No Measure 323 - Is this imaging test performed primarily for the monitoring of an asymptomatic patient who had percutaneous coronary intervention on the visit date or within 2 years of the visit date? An swer: No Measure 324 - Is this imaging test performed primarily for the initial detection and risk assessment on an asymptomatic, low coronary heart disease patient? Low CHD risk definition = clinicians should consider the maximum number of available patient factors used to estimate risk based on [place] (A TP III criteria), typically age, gender, diabetes, smoking status, and use of blood pressure medicati on, and integrate age appropriate estimates for missing elements, such as LDL or standard blood press ure. Answer: No Reviewed by: Raul Alonso MD on 03/05/2020 5:51 PM PDT Approved by: Raul Alonso MD on 03/05/2020 5:51 PM PDT Station ID: [id number]
--- NOTE | 2020-03-05 18:04 | Discharge Plan ---
Discharge Plan Problem Reviewed?: Yes Disposition: Home, Self Care Condition: Stable Prescriptions: Aspirin [Aspirin EC] 81 mg PO DAILY #30 tablet. Atorvastatin Calcium 40 mg PO QPM #30 tablet Diet: Cardiac (Low fat, low salt diet) Activity Restrictions: Activity as Tolerated Shower Restrictions: No Driving Restrictions: No Instruction Topics: Cholesterol Control, Food Cholesterol Health Concerns: You were here in Observation status to evaluate chest pain. The blood test showed you did not have a heart attack. The stress test showed you have good aerobic capacity, and the cardiac pictures showed you do not have areas of coronary blockages (you passed her stress test). We found that you have a very elevated cholesterol which needs medications for management, and not wait for you to exercise to bring down the cholesterol. You are being discharged on a new medication called Atorvastatin. The prescri ption was electronically sent to your [email or web address]. You should also start a stricter low-cholesterol diet limiting red meat,cheeses and dairy products. Your blood pressure was elevated yesterday but is normal today. You will not be sent home with a new blood pressure medicine, but you should decrease your use of salt and prepared foods that have a lot of salt in them, like canned soups or fast foods. You should also start taking 1 baby aspirin daily for prevention of heart disease. Please see your PCP in the next 1 to 2 weeks for further evaluation and management and hospital follow-up of your chest pain. Plan of Treatment: As above. Care Goals: Improvement in symptoms and stabilization are the goals. Assessment: Patient understands and is agreeable with the plan. No Smoking: If you smoke, Please STOP! Call for help. Follow-up with: LILIANA PRICE ARNP [Primary Care Provider] -
--- NOTE | 2020-03-05 18:08 | DISCHARGE SUMMARY ---
Discharge Summary Admit Date: 03/04/20 Discharge Date: 03/05/20 Discharging Provider: Dr Natty Mueller Primary Care Provider: MARIBELL Ray Code Status: Attempt Resuscitation Condition at Discharge: Stable Discharge Disposition: 01 Home, Self Care - HPI History of Present Illness: From the admission H&P of Dr Edmundo Dinero: This is a 44-year-old male with a past medical history significant for GERD who presents today complaining of chest pain. He states he had pain located over the left side of his chest on and off for the past month. The pain would come on at random times and lasts for 30 to 45 minutes. He reports no aggravating or alleviating factors. He reports having a history of GERD for which he takes Tums but states that this pain feels different. He states that today, the pain started while he was driving and felt like pressure over the left side of his chest that radiated to his neck as well as right arm. He reported associated numbness in his right upper extremity. He also felt lightheaded and short of breath. He states prior to arrival to the emergency department, his chest pain had already resolved on its own. He reports no family history of heart disease. He does not smoke but does chew tobacco on a daily basis for the past 10 years. He reports he was relatively active up until about 3 to 4 months ago due to the coronavirus. He has been quite sedentary recently. He reports no history of diabetes. He states he has been told that he has high cholesterol in the past and he began walking 30 minutes a day. He does not take any medications. He reports no prior history of hypertension. In the emergency department, his blood pressure was elevated at 165/104. His vitals otherwise unremarkable. His labs were also unremarkable including troponin. His EKG shows sinus rhythm with T wave inversions in leads III and flattening of T waves in aVF. Given his presentation, medicine was consulted for admission. - HOSPITAL COURSE Hospital Course: 1) Atypical chest pain for angina The radiation of pain to the right arm and occurrence without exertion were atypical for angina. His troponins were normal. An Echo showed normal LVEF and no pericardial effusion seen. He went on to have a treadmill stress test. He had no chest pain with exercise, did have new flattening of lateral T waves, but the nuclear scan showed no areas of reversible ischemia. He was advised to see his PCP for further evaluation and management of his symptoms. 2) Hyperlipidemia He reported knowing about elevated cholesterol and was trying exercise (but not diet change) to lower it. A fasting lipid panel was done for cardiac risk assessment and his LDL was found to be elevated at 159. He was discharged on Lipitor 40 mg qhs and advised to take aq baby aspirin daily for prevention. 2) Hypertension His BP was elevated at admission, but normal later without new meds. A lower salt diet was advised. 3) Chewing tobacco use The patient reported that he consumes (chews) 3 cans of chewing tobacco daily. He was advised to decrease this. 5) Hx of GERD Perhaps these chest pains were his GERD. Outpatient management with his PCP was advised. - ALLERGIES Allergies/Adverse Reactions: Allergies Allergy/AdvReac Type Severity Reaction Status Date / Time No Known Drug Allergies Allergy Verified 03/04/20 16:39 - MEDICATIONS Home Medications: Ambulatory Orders Medication Instructions Recorded Confirmed Aspirin [Aspirin EC] 81 mg PO DAILY #30 tablet. 03/05/20 Atorvastatin Calcium 40 mg PO QPM #30 tablet 03/05/20 - PHYSICAL EXAM AT DISCHARGE General Appearance: positive: No acute distress, Alert Eyes Bilateral: positive: Normal inspection, EOMI ENT: positive: ENT inspection nml, No signs of dehydration Neck: positive: Nml inspection, No JVD Respiratory: positive: No respiratory distress Cardiovascular: positive: Regular rate & rhythm, No murmur Abdomen: positive: Non-tender, No distention Skin: positive: Color nml Extremities: positive: Non-tender, No pedal edema Neurologic/Psychiatric: positive: Oriented x3, Other (Non-focal) - LABS Result Diagrams: 03/04/20 16:55 03/04/20 16:55 - DIAGNOSTIC IMAGING Diagnostic Imaging Results: Final report reviewed - FOLLOW UP Follow Up: See PCP in hospital follow-up. - TIME SPENT Time Spent in Discharge (Minutes): 30
--- NOTE | 2020-03-05 18:16 | CARDIAC PROCEDURE NOTE ---
DATE OF SERVICE: 03/05/2020 Physician: Natty Mueller MD INDICATION: Chest pain. The patient is in Observation status in the hospital to evaluate chest pain. DESCRIPTION OF PROCEDURE: After signing informed consent, the patient underwent a Arik-protocol treadmill stress test with nuclear myocardial perfusion imaging. RESTING HEART RATE: 63. PEAK HEART RATE: 164 (92% predicted maximum heart rate for age). RESTING BLOOD PRESSURE: 116/82. PEAK BLOOD PRESSURE: 179/94. The patient exercised for 10 minutes and 9 seconds on a Arik-protocol treadmill stress test. He achieved a peak heart rate of 164 (92% PMHR) and 12.1 METS. The patient had moderate shortness of breath, he had no chest pain with exercise. The patient rated his perceived exertion at 18/20 on the Eve scale at peak. Oxygen saturation was 90-98% throughout the test. RESTING EKG: Normal sinus rhythm, early repolarization. EKG AT PEAK: Inferolateral T-wave flattening. These changes recover after 2 minutes of rest. SUMMARY 1. Abnormal EKG. 2. Ischemic T-wave changes develop with exercise at a good level of stress achieved. 3. Nuclear images reported separately. 4. This patient's cardiac risk based on all the above: Moderate. TD: 03/05/2020 17:45 BJORN
[2020-03-05 18:19] VITALS: BP 116/73
== END 2020-03-05 18:45 | disposition home or self-care (01) ==
LOC: ED 16:35 → MS2 17:46
PROVIDERS: ADMIT Internal Medicine; ATTEND Internal Medicine
DX: R07.89 Other chest pain (principal); K21.9 Gastro-esophageal reflux disease without esophagitis; E78.5 Hyperlipidemia, unspecified; I10 Essential (primary) hypertension; F17.220 Nicotine dependence, chewing tobacco, uncomplicated
CPT/HCPCS: 36415; 71045; 78452; 80053; 80061; 83036; 83690; 84484; 85025; 93005; 93017; 93306; 99285; A9270; A9500; G0378; 83721

== ENCOUNTER 2021-07-04 16:10 | Outpatient (CLI) | payer BC | END 2021-07-04 16:11 | disposition critical access hospital (66) | LOC: EMS 16:10 | DX: U07.1 COVID-19 (principal) | CPT/HCPCS: A0425; A0429 ==

== ENCOUNTER 2021-07-04 16:50 | Inpatient (IN) | payer BC ==
[2021-07-04] MEDS ORDERED: DEXAMETHASONE 10 MG/ML VIAL IVP STA (16:59)
[2021-07-04] MEDS ORDERED: guaiFENesin/CODEINE 5 ML UDC PO STA (16:59)
--- NOTE | 2021-07-04 17:02 | ED Physician Documentation ---
PD HPI DYSPNEA - Stated complaint Stated Complaint: SOA - History obtained from History obtained from: Patient, EMS - Additional information Additional information: 45-year-old gentleman with history of untreated hypertension and not vaccinated against Covid became symptomatic with Covid 11 days ago on 23 June. Subsequently tested positive [facility] the next day. He was doing okay until 2 days ago, when he started to become short of breath and have more of a productive cough. He was seen at [facility] and told he had pneumonia. I presume his oxygen levels were okay because he was discharged. Became more short of breath and now had a room air oxygen saturation of 88% and was transported by ambulance. Review of Systems Ten Systems: 10 systems reviewed and negative Constitutional: reports: Fever, Chills, Myalgias, Fatigue Respiratory: reports: Dyspnea, Cough PD PAST MEDICAL HISTORY - Past Medical History Cardiovascular: None Respiratory: None Neuro: None Endocrine/Autoimmune: None GI: GERD : Kidney stones HEENT: None Psych: None Musculoskeletal: None Derm: None - Past Surgical History Past Surgical History: No General: Colonoscopy, EGD - Present Medications Home Medications: Ambulatory Orders Medication Instructions Recorded Confirmed Aspirin [Aspirin EC] 81 mg PO DAILY #30 tablet. 03/05/20 Atorvastatin Calcium 40 mg PO QPM #30 tablet 03/05/20 - Allergies Allergies/Adverse Reactions: Allergies Allergy/AdvReac Type Severity Reaction Status Date / Time No Known Drug Allergies Allergy Verified 03/04/20 16:39 - Social History Does the pt smoke?: No Smoking Status: Never smoker Does the pt drink ETOH?: Yes Does the pt have substance abuse?: No - Immunizations Immunizations are current?: Yes Immunizations: TDAP >10years/unknown - POLST Patient has POLST: No PD ED PE NORMAL - Vitals Vital signs reviewed: Yes - General General: Alert and oriented X 3, No acute distress - HEENT HEENT: PERRL, EOMI, Ears normal, Pharynx benign - Neck Neck: Supple, no meningeal sign, No bony TTP - Cardiac Cardiac: RRR, No murmur - Respiratory Respiratory: No respiratory distress, Clear bilaterally - Abdomen Abdomen: Non tender - Back Back: No CVA TTP, No spinal TTP - Derm Derm: Normal color, Warm and dry - Extremities Extremities: No edema, No calf tenderness / cord - Neuro Neuro: Alert and oriented X 3, Normal speech Results - Vitals Vitals: Vital Signs - 24 hr 07/04/21 07/04/21 07/04/21 16:59 17:02 17:06 Temperature 36.6 C Heart Rate 94 Respiratory 33 H Rate Blood Pressure 132/88 H O2 Saturation 88 L 96 96 Oxygen O2 Source Nasal cannula Oxygen Flow Rate 5 - Labs Labs: Laboratory Tests 07/04/21 07/04/21 07/04/21 17:13 17:13 17:13 WBC 5.6 RBC 5.26 Hgb 15.9 Hct 47.9 MCV 91.1 MCH 30.2 MCHC 33.2 RDW 11.5 L Plt Count 147 MPV 9.0 Neut # (Auto) 3.8 Lymph # (Auto) 1.2 L [place] # (Auto) 0.6 Eos # (Auto) 0.0 Baso # (Auto) 0.0 Absolute Nucleated RBC 0.00 Nucleated RBC % 0.0 D-Dimer < 200.0 L VBG pH VBG pCO2 VBG pO2 VBG HCO3 VBG Total CO2 VBG O2 Saturation VBG Base Excess Sodium 135 Potassium 3.6 Chloride 97 L Carbon Dioxide 25 Anion Gap 13.0 BUN 15 Creatinine 1.2 Estimated GFR (MDRD) 66 L Glucose 119 H Calcium 8.7 Phosphorus 4.5 Magnesium 2.2 07/04/21 17:13 WBC RBC Hgb Hct MCV MCH MCHC RDW Plt Count MPV Neut # (Auto) Lymph # (Auto) [place] # (Auto) Eos # (Auto) Baso # (Auto) Absolute Nucleated RBC Nucleated RBC % D-Dimer VBG pH 7.432 H VBG pCO2 33.2 L VBG pO2 59.0 H VBG HCO3 21.6 L VBG Total CO2 22.7 L VBG O2 Saturation 90.3 H VBG Base Excess -1.7 Sodium Potassium Chloride Carbon Dioxide Anion Gap BUN Creatinine Estimated GFR (MDRD) Glucose Calcium Phosphorus Magnesium PD MEDICAL DECISION MAKING - ED course ED course: 45-year-old gentleman presents with Covid pneumonia and now hypoxemia down to 88% on room air. He does need supplemental oxygen. Call to Dr. Lees for admission at 5:52 PM. Departure - Departure Disposition: 66 [facility] DC/Xfer Clinical Impression: COVID-19 Respiratory failure Qualifiers: Chronicity: acute Respiratory failure complication: hypoxia Qualified Code(s): J96.01 - Acute respiratory failure with hypoxia Condition: Serious
[2021-07-04 17:19] LABS: VBG PCO2 33.2 mmHg (41-51); VBG PH 7.432 (7.31-7.41)
[2021-07-04 17:20] LABS: EOSINOPHILS % (AUTO) 0.7 %; HCT - HEMATOCRIT 47.9 % (42.0-52.0); HGB - HEMOGLOBIN 15.9 g/dL (14.0-18.0); LYMPHOCYTES # (AUTO) 1.2 10^3/uL (1.5-3.5); LYMPHOCYTES % (AUTO) 21.1 %; MEAN CORPUSCULAR HEMOGLOBIN 30.2 pg (27.0-31.0); MEAN CORPUSCULAR HGB CONC 33.2 g/dL (32.0-36.0); MEAN CORPUSCULAR VOLUME 91.1 fL (80.0-94.0); MONOCYTES # (AUTO) 0.6 10^3/uL (0.0-1.0); MONOCYTES % (AUTO) 9.9 %; NEUTROPHILS # (AUTO) 3.8 10^3/uL (1.5-6.6); NEUTROPHILS % (AUTO) 67.9 %; PLT - PLATELET COUNT 147 10^3/uL (130-450); RED BLOOD COUNT 5.26 10^6/uL (4.70-6.10); RED CELL DISTRIBUTION WIDTH 11.5 % (12.0-15.0); VBG BASE EXCESS -1.7 mmol/L (-2 - +2); VBG HCO3 21.6 mmol/L (23-28); VBG OXYGEN SATURATION 90.3 % (60-80); VBG TOTAL CO2 22.7 mmol/L (24-29); WHITE BLOOD COUNT 5.6 x10^3/uL (4.8-10.8)
--- NOTE | 2021-07-04 17:33 | XRAY Report ---
PROCEDURE: Chest 1 View X-Ray INDICATIONS: dyspnea covid TECHNIQUE: One view of the chest was acquired. COMPARISON: 03/04/2020 FINDINGS: Surgical changes and devices: None. Lungs and pleura: No pleural effusions or pneumothorax. There are basilar interstitial and alveolar opacities, left greater than right. Mediastinum: Mediastinal contours appear normal. Heart size is normal. Bones and chest wall: No suspicious bony lesions. Overlying soft tissues appear unremarkable. IMPRESSION: Multifocal opacities of the lung bases most consistent with COVID pneumonia given history. Reviewed by: Jaylan Beckett DO on 07/04/2021 4:31 PM TOPHER Approved by: Jaylan Beckett DO on 07/04/2021 4:31 PM TOPHER Station ID: [id number]
[2021-07-04 17:42] LABS: CALCIUM 8.7 mg/dL (8.5-10.3); CREATININE 1.2 mg/dL (0.6-1.2); MAGNESIUM 2.2 mg/dL (1.7-2.8); PHOSPHORUS 4.5 mg/dL (2.5-4.6); POTASSIUM 3.6 mmol/L (3.5-5.0)
[2021-07-04] MEDS ORDERED: SODIUM CHLORIDE FLUSH 0.9% 10 ML SYRINGE IVP PRN (17:54)
[2021-07-04] MEDS ORDERED: ONDANSETRON 4 MG/2 ML VIAL IVP PRN (17:54)
[2021-07-04] MEDS ORDERED: ONDANSETRON ODT 4 MG TABLET TL PRN (17:54)
[2021-07-04] MEDS ORDERED: ZOLPIDEM 5 MG TABLET PO PRN (17:54)
--- NOTE | 2021-07-04 18:03 | HISTORY & PHYSICAL EXAMINATION ---
Chief Complaint - Chief Complaint Chief Complaint: cough, sob, fatigue in Covid (+) pt History of Present Illness - Admitted From Admitted From:: home - History Obtained From Records Reviewed: [facility] History obtained from: Dr. Frazier and patient Exam Limitations: none - History of Present Illness HPI Comment/Other: 45-year-old white male whose past medical history significant for only GERD and kidney stones and an episode of chest pain in February 2020 that comes in with cough, shortness of breath and fatigue. He is Covid positive. Thinks that on June 23. He tested positive for home test on June 24. His 12-year-old son is also sick. He was seen at [facility] but not felt to meet criteria for admission and discharge. He is now day 11 of illness. He comes in because he is just too tired and too short of breath.He denies chest pain, cough. Just exhausted. Short of breath. Has no GI complaints. 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 No radiation down the legs Temperature is 36.6. Heart rate is 94. Blood pressure 132/88. Respirations 33. He is 88% on room air. On physical examination he is alert and oriented. Without respiratory distress. Lungs are clear. BMP is normal except for random glucose of 119. White cell count and hemoglobin and hematocrit are normal. D- dimer is less than 200. Venous blood gases a pH of 7.43, PCO2 33, PO2 59. Chest x-ray has multifocal opacities at the lung bases most consistent with Covid pneumonia given his history. As such the emergency room has asked us to admit the patient for Covid. He is beyond the window of opportunity for remdesivir and will be placed on Decadron, IV fluids, and supportive measures. History - Past Medical History Cardiovascular: reports: Other (Chest pain admission February 2020 with negative stress test, negative troponins) Respiratory: reports: None Neuro: reports: None Endocrine/Autoimmune: reports: None GI: reports: GERD : reports: Kidney stones HEENT: reports: None Psych: reports: None Musculoskeletal: reports: None Derm: reports: None MRSA Hx?: No - Past Surgical History General: reports: Colonoscopy, EGD - Family & Social History Family History Comment/Other: Dad of esophageal cancer age 65. Also had hypertension. Mom is alive at age 65 and has no high blood pressure diabetes, cancer, heart attack. Eight siblings. He says they are all healthy. No high blood pressure, diabetes, cancer, heart attack. One son. Healthy except for Covid right now. Living arrangement: At home Living Situation: With spouse/s.o., With family Social History Notes: He is from [facility]. Emig[place] here to the [facility] with his mom and dad in the early . They initially lived in [place]. He moved here when his dad moved here and got sick. He came to help take care of his dad until he .He lives at home with his and son. 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 He chews 3 cans of tobacco on a daily basis for the past 10 years. Denies any smoking, alcohol, drug use.He would like to meet with social work because he would like help on FMLA, and filing for disability - Substance History Use: Uses substance without health or social issues: Tobacco Abuse: Recurrent use of substance despite neg consequences: NONE Dependence: Experiences withdrawal or developed tolerances: NONE - POLST Patient has POLST: No POLST Status: Full Code Meds/Allgy - Home Medications Home Medications: Ambulatory Orders Medication Instructions Recorded Confirmed Aspirin [Aspirin EC] 81 mg PO DAILY #30 tablet. 03/05/20 Atorvastatin Calcium 40 mg PO QPM #30 tablet 03/05/20 - Allergies Allergies/Adverse Reactions: Allergies Allergy/AdvReac Type Severity Reaction Status Date / Time No Known Drug Allergies Allergy Verified 03/04/20 16:39 Review of Systems - Constitutional Constitutional: reports: Fatigue, Malaise, Weakness, Poor appetite - Eyes Eyes: denies: Pain, Irritation, Amaurosis, Blurred vision, Vision loss - Ears, Nose & Throat Ears, Nose & Throat: denies: Hearing loss, Hearing aids, Tinnitus, Sore throat, Hoarseness - Cardiovascular Cariovascular: reports: Exertional dyspnea, Decr. exercise tolerance. denies: Irregular heart rate, Palpitations, Chest pain - Respiratory Respiratory: reports: Cough, SOB at rest, SOB with exertion. 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 denies: Muscle pain, Stiffness, Joint pain - Integumentary Integumentary: denies: Rash, Pruritis, Lesions, Dryness, Pigment changes, Nail changes - Neurological Neurological: reports: General weakness. denies: Focal weakness, Headache, Dizziness, Abnormal gait - Psychiatric Psychiatric: denies: Depression, Anxiety, Suicidal, Delusions, Hallucinations - Endocrine Endocrine: denies: Polyuria, Polydypsia, Polyphagia - Hematologic/Lymphatic Hematologic/Lymphatic: denies: Anemia, Bruising, Petechiae Prior Level of Functionality: Completely independent. Works full-time. 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 Exam - Vital Signs Reviewed Vital Signs: Yes Vital Signs: Vital Signs x48h Temp Pulse Resp BP Pulse Ox 07/04/21 17:06 96 07/04/21 17:02 36.6 C 94 33 H 132/88 H 96 07/04/21 16:59 88 L Conclusion/Plan - Problem List (1) COVID-19 Conclusion/Plan: Beyond the window of treatment with remdesivir. To be on supportive care. Oxygen. Decadron. I will present the case to pharmacy tomorrow morning and see if he may be a candidate for remdesivir (2) Hypoxia Conclusion/Plan: Nasal cannula oxygen to maintain O2 sats greater than 92%. - Lab Results Lab results reviewed: Yes Fish Bones: 07/04/21 17:13 07/04/21 17:13 - Diagnostic Imaging Results Diagnostic Imaging Results: positive: Final report reviewed Core Measures - Anticipated LOS I expect patient to be DC'd or transferred within 96 hours.: Yes - DVT/VTE - Prophylaxis VTE/DVT Device ordered at admit?: Yes
[2021-07-04 18:31] LABS: CORONAVIRUS 229E-RESP PCR NOT DETECTED; CORONAVIRUS HKU1-RESP PCR NOT DETECTED; CORONAVIRUS NL63-RESP PCR NOT DETECTED; CORONAVIRUS OC43-RESP PCR NOT DETECTED
[2021-07-04 18:33] LABS: HUMAN METAPNEUMOVIRUS NOT DETECTED; INFLUENZA A- RESP PCR PANEL NOT DETECTED; INFLUENZA B - RESP PCR PANEL NOT DETECTED; PARAINFLUENZA VIRUS 1 NOT DETECTED; RHINOVIRUS/ENTEROVIRUS NOT DETECTED; SARS-CoV-2 -RESP PCR PANEL DETECTED
[2021-07-04 18:34] LABS: B. PARAPERTUSSIS- RESP PCR PAN NOT DETECTED; B. PERTUSSIS- RESP PCR PANEL NOT DETECTED; C. PNEUMONIAE- RESP PCR PANEL NOT DETECTED; M. PNEUMONIAE- RESP PCR PANEL NOT DETECTED; PARAINFLUENZA VIRUS 2 NOT DETECTED; PARAINFLUENZA VIRUS 3 NOT DETECTED; PARAINFLUENZA VIRUS 4 NOT DETECTED; RSV- RESP PCR PANEL NOT DETECTED
[2021-07-04] MEDS: LACTATED RINGERS 1,000 ML IV SCH (18:56)
[2021-07-05] MEDS: SODIUM CHLORIDE FLUSH 0.9% 10 ML SYRINGE IVP SCH ×3 (01:17→15:36)
[2021-07-05] MEDS: oxyCODONE 5 MG TABLET PO PRN ×3 (01:26→11:16)
[2021-07-05] MEDS: LACTATED RINGERS 1,000 ML IV SCH (04:39)
[2021-07-05] MEDS: ACETAMINOPHEN 325 MG TABLET PO PRN ×2 (04:57→11:15)
[2021-07-05] MEDS: PANTOPRAZOLE 40 MG TABLET PO SCH (06:51)
[2021-07-05 07:21] LABS: HCT - HEMATOCRIT 47.7 % (42.0-52.0); HGB - HEMOGLOBIN 15.4 g/dL (14.0-18.0); LYMPHOCYTES % (AUTO) 29.2 %; MEAN CORPUSCULAR HEMOGLOBIN 29.6 pg (27.0-31.0); MEAN CORPUSCULAR HGB CONC 32.3 g/dL (32.0-36.0); MEAN CORPUSCULAR VOLUME 91.6 fL (80.0-94.0); MEAN PLATELET VOLUME 9.2 fL (7.4-11.4); MONOCYTES % (AUTO) 6.1 %; NEUTROPHILS % (AUTO) 63.2 %; PLT - PLATELET COUNT 151 10^3/uL (130-450); RED BLOOD COUNT 5.21 10^6/uL (4.70-6.10); RED CELL DISTRIBUTION WIDTH 11.4 % (12.0-15.0); WHITE BLOOD COUNT 2.6 x10^3/uL (4.8-10.8)
[2021-07-05 07:22] LABS: CALCIUM 8.7 mg/dL (8.5-10.3); POTASSIUM 4.2 mmol/L (3.5-5.0)
[2021-07-05 07:32] LABS: ABNORMAL LYMPHS % (MANUAL) 0 %; SLIDE REVIEW? Indicated
[2021-07-05 07:51] LABS: BAND NEUTROPHILS % (MANUAL) 2 %; LYMPHOCYTES # (MANUAL) 0.6 10^3/uL (1.5-3.5); LYMPHOCYTES % (MANUAL) 14 %; MONOCYTES # (MANUAL) 0.2 10^3/uL (0.0-1.0); NEUTROPHILS # (MANUAL) 1.9 10^3/uL (1.5-6.6); REACTIVE LYMPHS % (MANUAL) 8 %
--- NOTE | 2021-07-05 09:14 | PHARMACY PROGRESS NOTE ---
- Best Possible Medication History Admit Date and Time: 07/04/21 1750 Processed by: Pharmacy Medication History completed: Yes Patient Interview: Completed As the person ultimately responsible for medication therapy, providers are able to order a medication from an existing home medication list in [facility] via the "Reconcile Routine" prior to Confirmation of that medication by technical support associate. Such practice is discouraged except when the physician, in their clinical tadeo gment, deems that a medical need exists for a medication without regard to previous use.
[2021-07-05] MEDS: ENOXAPARIN 40 MG/0.4 ML SYRINGE SUBQ SCH (09:24)
--- NOTE | 2021-07-05 14:39 | PROVIDER PROGRESS NOTE ---
Subjective - Prog Note Date Prog Note Date: 07/05/21 Prog Note Time: 14:39 - Subjective Subjective: Very short of breath with minimal activities. Constant cough. Pleuritic chest pain with a cough now. Current Medications - Current Medications Current Medications: Active Medications Acetaminophen (Acetaminophen 325 Mg Tablet) 650 mg PO Q4HR PRN PRN Reason: Pain 1 to 4 Last Admin: 07/05/21 11:15 Dose: 650 mg Documented by: Enoxaparin Sodium (Enoxaparin 40 Mg/0.4 Ml Syringe) 40 mg SUBQ DAILY [facility] Last Admin: 07/05/21 09:24 Dose: 40 mg Documented by: Ketorolac Tromethamine (Ketorolac 30 Mg/Ml Vial) 30 mg IVP Q6HR PRN PRN Reason: PAIN Ondansetron HCl (Ondansetron Odt 4 Mg Tablet) 4 mg TL Q6HR PRN PRN Reason: Nausea / Vomiting Ondansetron HCl (Ondansetron 4 Mg/2 Ml Vial) 4 mg IVP Q6HR PRN PRN Reason: Nausea / Vomiting Oxycodone HCl (Oxycodone 5 Mg Tablet) 5 mg PO Q4HR PRN PRN Reason: Pain 5 to 7 Last Admin: 07/05/21 11:16 Dose: 5 mg Documented by: Pantoprazole Sodium (Pantoprazole 40 Mg Tablet) 40 mg PO QDAC [facility] Last Admin: 07/05/21 06:51 Dose: 40 mg Documented by: Sodium Chloride (Sodium Chloride Flush 0.9% 10 Ml Syringe) 10 ml IVP PRN PRN PRN Reason: NEEDED PER PROVIDER ORDERS Sodium Chloride (Sodium Chloride Flush 0.9% 10 Ml Syringe) 10 ml IVP 0100,0900,1700 [facility] Last Admin: 07/05/21 09:24 Dose: Not Given Documented by: Zolpidem Tartrate (Zolpidem 5 Mg Tablet) 5 mg PO QPM PRN PRN Reason: Insomnia No Known Home Medications 07/05/21 Objective - Vital Signs/Intake & Output Reviewed Vital Signs: Yes Vital Signs: Vital Signs x48h Temp Pulse Resp BP Pulse Ox 07/05/21 08:15 36.5 C 75 18 134/97 H 96 Intake & Output: Intake & Output 07/02/21 07/03/21 07/04/21 07/05/21 23:59 23:59 23:59 23:59 Intake Total 566.137 5094 Output Total 400 1125 Balance 023.060 9387 - Objective General Appearance: positive: Mild distress (Get short of breath talking, and walking in room) Eyes Bilateral: positive: PERRL, EOMI ENT: positive: No signs of dehydration Neck: positive: No JVD. negative: Stiff neck Respiratory: positive: Rales, Rhonchi, Other (No use of accessory muscles Just gets wiped out very easily). negative: Wheezes Cardiovascular: positive: Regular rate & rhythm. negative: Gallop/S4, Friction rub Abdomen: positive: Non-tender, No organomegaly, Nml bowel sounds, No distention Skin: positive: Warm, Dry Extremities: positive: Full ROM, No pedal edema Neurologic/Psychiatric: positive: Oriented x3, CN's nml (2-12), Motor nml, Sensation nml - Lab Results Fish Bones: 07/05/21 06:54 07/05/21 06:54 Other Labs: Lab Results x24hrs 07/05/21 07/05/21 07/04/21 Range/Units 06:54 06:54 17:30 WBC 2.6 L (4.8-10.8) x10^3/uL RBC 5.21 (4.70-6.10) 10^6/uL Hgb 15.4 (14.0-18.0) g/dL Hct 47.7 (42.0-52.0) % MCV 91.6 (80.0-94.0) fL MCH 29.6 (27.0-31.0) pg MCHC 32.3 (32.0-36.0) g/dL RDW 11.4 L (12.0-15.0) % Plt Count 151 (130-450) 10^3/uL MPV 9.2 (7.4-11.4) fL Neut # (Auto) Not Reportable (1.5-6.6) 10^3/uL Lymph # (Auto) Not Reportable (1.5-3.5) 10^3/uL [place] # (Auto) Not Reportable (0.0-1.0) 10^3/uL Eos # (Auto) Not Reportable (0.0-0.7) 10^3/uL Baso # (Auto) Not Reportable (0.0-0.1) 10^3/uL Absolute Nucleated RBC Not Reportable x10^3/uL Total Counted 100 Band Neuts % (Manual) 2 (0 - 10) % Reactive Lymphs % (Man) 8 % Abnorm Lymph % (Manual) 0 % Nucleated RBC % Not Reportable /100WBC Neutrophils # (Manual) 1.9 (1.5-6.6) 10^3/uL Lymphocytes # (Manual) 0.6 L (1.5-3.5) 10^3/uL Monocytes # (Manual) 0.2 (0.0-1.0) 10^3/uL Eosinophils # (Manual) 0.0 (0-0.7) 10^3/uL Basophils # (Manual) 0.0 (0-0.1) 10^3/uL Manual Slide Review Indicated D-Dimer (200.0-255.0) ng/mL VBG pH (7.31-7.41) VBG pCO2 (41-51) mmHg VBG pO2 (25-47) mmHg VBG HCO3 (23-28) mmol/L VBG Total CO2 (24-29) mmol/L VBG O2 Saturation (60-80) % VBG Base Excess (-2 - +2) mmol/L Sodium 137 (135-145) mmol/L Potassium 4.2 (3.5-5.0) mmol/L Chloride 102 (101-111) mmol/L Carbon Dioxide 24 (21-32) mmol/L Anion Gap 11.0 (6-13) BUN 16 (6-20) mg/dL Creatinine 1.0 (0.6-1.2) mg/dL Estimated GFR (MDRD) 82 L (>89) Glucose 143 H (70-100) mg/dL Calcium 8.7 (8.5-10.3) mg/dL Phosphorus (2.5-4.6) mg/dL Magnesium (1.7-2.8) mg/dL Nasal Adenovirus (PCR) NOT DETECTED Nasal B. parapertussis DNA (PCR) NOT DETECTED Nasal Coronavir 229E PCR NOT DETECTED Nasal Coronavir HKU1 PCR NOT DETECTED Nasal Coronavir NL63 PCR NOT DETECTED Nasal Coronavir OC43 PCR NOT DETECTED Nasal Enterovir/Rhinovir PCR NOT DETECTED Nasal Influenza B PCR NOT DETECTED Nasal Influenza A PCR NOT DETECTED Nasal Parainfluen 1 PCR NOT DETECTED Nasal Parainfluen 2 PCR NOT DETECTED Nasal Parainfluen 3 PCR NOT DETECTED Nasal Parainfluen 4 PCR NOT DETECTED Nasal RSV (PCR) NOT DETECTED Nasal B.pertussis DNA PCR NOT DETECTED Nasal C.pneumoniae (PCR) NOT DETECTED [place] Human Metapneumo PCR NOT DETECTED Nasal M.pneumoniae (PCR) NOT DETECTED Nasal SARS-CoV-2 (PCR) DETECTED A 07/04/21 07/04/21 07/04/21 Range/Units 17:13 17:13 17:13 WBC (4.8-10.8) x10^3/uL RBC (4.70-6.10) 10^6/uL Hgb (14.0-18.0) g/dL Hct (42.0-52.0) % MCV (80.0-94.0) fL MCH (27.0-31.0) pg MCHC (32.0-36.0) g/dL RDW (12.0-15.0) % Plt Count (130-450) 10^3/uL MPV (7.4-11.4) fL Neut # (Auto) (1.5-6.6) 10^3/uL Lymph # (Auto) (1.5-3.5) 10^3/uL [place] # (Auto) (0.0-1.0) 10^3/uL Eos # (Auto) (0.0-0.7) 10^3/uL Baso # (Auto) (0.0-0.1) 10^3/uL Absolute Nucleated RBC x10^3/uL Total Counted Band Neuts % (Manual) (0 - 10) % Reactive Lymphs % (Man) % Abnorm Lymph % (Manual) % Nucleated RBC % /100WBC Neutrophils # (Manual) (1.5-6.6) 10^3/uL Lymphocytes # (Manual) (1.5-3.5) 10^3/uL Monocytes # (Manual) (0.0-1.0) 10^3/uL Eosinophils # (Manual) (0-0.7) 10^3/uL Basophils # (Manual) (0-0.1) 10^3/uL Manual Slide Review D-Dimer < 200.0 L (200.0-255.0) ng/mL VBG pH 7.432 H (7.31-7.41) VBG pCO2 33.2 L (41-51) mmHg VBG pO2 59.0 H (25-47) mmHg VBG HCO3 21.6 L (23-28) mmol/L VBG Total CO2 22.7 L (24-29) mmol/L VBG O2 Saturation 90.3 H (60-80) % VBG Base Excess -1.7 (-2 - +2) mmol/L Sodium 135 (135-145) mmol/L Potassium 3.6 (3.5-5.0) mmol/L Chloride 97 L (101-111) mmol/L Carbon Dioxide 25 (21-32) mmol/L Anion Gap 13.0 (6-13) BUN 15 (6-20) mg/dL Creatinine 1.2 (0.6-1.2) mg/dL Estimated GFR (MDRD) 66 L (>89) Glucose 119 H (70-100) mg/dL Calcium 8.7 (8.5-10.3) mg/dL Phosphorus 4.5 (2.5-4.6) mg/dL Magnesium 2.2 (1.7-2.8) mg/dL Nasal Adenovirus (PCR) Nasal B. parapertussis DNA (PCR) Nasal Coronavir 229E PCR Nasal Coronavir HKU1 PCR Nasal Coronavir NL63 PCR Nasal Coronavir OC43 PCR Nasal Enterovir/Rhinovir PCR Nasal Influenza B PCR Nasal Influenza A PCR Nasal Parainfluen 1 PCR Nasal Parainfluen 2 PCR Nasal Parainfluen 3 PCR Nasal Parainfluen 4 PCR Nasal RSV (PCR) Nasal B.pertussis DNA PCR Nasal C.pneumoniae (PCR) [place] Human Metapneumo PCR Nasal M.pneumoniae (PCR) Nasal SARS-CoV-2 (PCR) 07/04/21 Range/Units 17:13 WBC 5.6 (4.8-10.8) x10^3/uL RBC 5.26 (4.70-6.10) 10^6/uL Hgb 15.9 (14.0-18.0) g/dL Hct 47.9 (42.0-52.0) % MCV 91.1 (80.0-94.0) fL MCH 30.2 (27.0-31.0) pg MCHC 33.2 (32.0-36.0) g/dL RDW 11.5 L (12.0-15.0) % Plt Count 147 (130-450) 10^3/uL MPV 9.0 (7.4-11.4) fL Neut # (Auto) 3.8 (1.5-6.6) 10^3/uL Lymph # (Auto) 1.2 L (1.5-3.5) 10^3/uL [place] # (Auto) 0.6 (0.0-1.0) 10^3/uL Eos # (Auto) 0.0 (0.0-0.7) 10^3/uL Baso # (Auto) 0.0 (0.0-0.1) 10^3/uL Absolute Nucleated RBC 0.00 x10^3/uL Total Counted Band Neuts % (Manual) (0 - 10) % Reactive Lymphs % (Man) % Abnorm Lymph % (Manual) % Nucleated RBC % 0.0 /100WBC Neutrophils # (Manual) (1.5-6.6) 10^3/uL Lymphocytes # (Manual) (1.5-3.5) 10^3/uL Monocytes # (Manual) (0.0-1.0) 10^3/uL Eosinophils # (Manual) (0-0.7) 10^3/uL Basophils # (Manual) (0-0.1) 10^3/uL Manual Slide Review D-Dimer (200.0-255.0) ng/mL VBG pH (7.31-7.41) VBG pCO2 (41-51) mmHg VBG pO2 (25-47) mmHg VBG HCO3 (23-28) mmol/L VBG Total CO2 (24-29) mmol/L VBG O2 Saturation (60-80) % VBG Base Excess (-2 - +2) mmol/L Sodium (135-145) mmol/L Potassium (3.5-5.0) mmol/L Chloride (101-111) mmol/L Carbon Dioxide (21-32) mmol/L Anion Gap (6-13) BUN (6-20) mg/dL Creatinine (0.6-1.2) mg/dL Estimated GFR (MDRD) (>89) Glucose (70-100) mg/dL Calcium (8.5-10.3) mg/dL Phosphorus (2.5-4.6) mg/dL Magnesium (1.7-2.8) mg/dL Nasal Adenovirus (PCR) Nasal B. parapertussis DNA (PCR) Nasal Coronavir 229E PCR Nasal Coronavir HKU1 PCR Nasal Coronavir NL63 PCR Nasal Coronavir OC43 PCR Nasal Enterovir/Rhinovir PCR Nasal Influenza B PCR Nasal Influenza A PCR Nasal Parainfluen 1 PCR Nasal Parainfluen 2 PCR Nasal Parainfluen 3 PCR Nasal Parainfluen 4 PCR Nasal RSV (PCR) Nasal B.pertussis DNA PCR Nasal C.pneumoniae (PCR) [place] Human Metapneumo PCR Nasal M.pneumoniae (PCR) Nasal SARS-CoV-2 (PCR) ABX Reporting Has patient been on IV antibiotics over the past 48 hours?: No Assessment/Plan - Problem List (1) Pleuritic chest pain Impression: D-dimer was not high yesterday. He is on Lovenox. As such I believe he is pleurisy. Plan: Toradol as needed for 6 doses only. He is on Decadron. He is also on Protonix. (2) COVID-19 Impression: Beyond the window of treatment with remdesivir. To be on supportive care. Oxygen. Decadron.States they have no policy against giving remdesivir at this time. In looking at the IDSA guidelines it is recommended for patients who are on supplemental oxygen but not for those on ECMO or intubated. As such I will add remdesivir today. (3) Hypoxia Conclusion/Plan: Nasal cannula oxygen to maintain O2 sats greater than 92%.He is currently on 30 L high flow nasal cannula at 35% FiO2 and O2 sat is 96%.
[2021-07-05] MEDS ORDERED: NON FORMULARY MED (Remdesivir 200 MG) IVP ONE (14:44)
[2021-07-05] MEDS ORDERED: REMDESIVIR 100MG VIAL 200 MG in SODIUM CHLORIDE 0.9% 250 ML IV ONE (16:00)
[2021-07-05] MEDS: DEXAMETHASONE 4 MG/ML VIAL IVP SCH (16:28)
[2021-07-06] MEDS: SODIUM CHLORIDE FLUSH 0.9% 10 ML SYRINGE IVP SCH ×3 (00:08→21:06)
[2021-07-06] MEDS: oxyCODONE 5 MG TABLET PO PRN ×3 (00:55→20:50)
[2021-07-06] MEDS: BENZONATATE 100 MG CAPSULE PO PRN ×3 (00:55→20:58)
[2021-07-06] MEDS: KETOROLAC 30 MG/ML VIAL IVP PRN ×2 (00:55→08:17)
[2021-07-06] MEDS: guaiFENesin 100 MG/5 ML UDC PO PRN ×3 (00:55→20:58)
[2021-07-06 06:26] LABS: BASOPHILS % (AUTO) 0.2 %; HCT - HEMATOCRIT 45.3 % (42.0-52.0); HGB - HEMOGLOBIN 14.7 g/dL (14.0-18.0); LYMPHOCYTES % (AUTO) 18.8 %; MEAN CORPUSCULAR HEMOGLOBIN 29.8 pg (27.0-31.0); MEAN CORPUSCULAR HGB CONC 32.5 g/dL (32.0-36.0); MEAN CORPUSCULAR VOLUME 91.9 fL (80.0-94.0); MEAN PLATELET VOLUME 9.4 fL (7.4-11.4); MONOCYTES % (AUTO) 6.3 %; NEUTROPHILS % (AUTO) 74.3 %; PLT - PLATELET COUNT 186 10^3/uL (130-450); RED BLOOD COUNT 4.93 10^6/uL (4.70-6.10); RED CELL DISTRIBUTION WIDTH 11.4 % (12.0-15.0); WHITE BLOOD COUNT 5.1 x10^3/uL (4.8-10.8)
[2021-07-06 06:37] LABS: CALCIUM 8.8 mg/dL (8.5-10.3); CREATININE 1.1 mg/dL (0.6-1.2); POTASSIUM 4.4 mmol/L (3.5-5.0)
[2021-07-06 06:48] LABS: ABNORMAL LYMPHS % (MANUAL) 2 %; BAND NEUTROPHILS % (MANUAL) 1 %; DIFFERENTIAL COMMENT MANUAL DIFFERENTIAL; LYMPHOCYTES # (MANUAL) 1.1 10^3/uL (1.5-3.5); LYMPHOCYTES % (MANUAL) 20 %; MONOCYTES # (MANUAL) 0.2 10^3/uL (0.0-1.0); NEUTROPHILS # (MANUAL) 3.8 10^3/uL (1.5-6.6); PLATELET ESTIMATE, MANUAL NORMAL (130-450,000) (NORMAL); PLATELET MORPHOLOGY NORMAL APPEARANCE (NORMAL); RBC MORPHOLOGY (MULTIPLE) NORMAL APPEARANCE (NORMAL); WBC MORPHOLOGY (MULTIPLE) NORMAL APPEARANCE (NORMAL)
[2021-07-06] MEDS: ACETAMINOPHEN 325 MG TABLET PO PRN (08:10)
[2021-07-06] MEDS: PANTOPRAZOLE 40 MG TABLET PO SCH (08:13)
[2021-07-06] MEDS: DEXAMETHASONE 4 MG/ML VIAL IVP SCH (08:15)
[2021-07-06] MEDS: ENOXAPARIN 40 MG/0.4 ML SYRINGE SUBQ SCH (08:16)
[2021-07-06] MEDS ORDERED: dexAMETHasone 4 MG TABLET PO SCH (09:00)
[2021-07-06] MEDS: REMDESIVIR 100MG VIAL 100 MG in SODIUM CHLORIDE 0.9% 100ML 100 ML IV SCH (09:56)
--- NOTE | 2021-07-06 14:20 | PROVIDER PROGRESS NOTE ---
Subjective - Prog Note Date Prog Note Date: 07/06/21 Prog Note Time: 14:21 - Subjective Subjective: He short of breath with just 2-3 words. He says that getting up to go to the bathroom and get back in bed takes him half an hour to recover. Appetite is not good. But he is starting to taste things again. At least he can taste them. Cough is mild. He updates me on his 12-year-old son who also has Covid. He says that his appetite is good, he is doing normal things around the house, and he does not appear to be very sick other than a chronic cough. Pleuritic chest pain is much improved overall Current Medications - Current Medications Current Medications: Active Medications Acetaminophen (Acetaminophen 325 Mg Tablet) 650 mg PO Q4HR PRN PRN Reason: Pain 1 to 4 Last Admin: 07/06/21 08:10 Dose: 650 mg Documented by: Benzonatate (Benzonatate 100 Mg Capsule) 100 mg PO TID PRN PRN Reason: Cough Last Admin: 07/06/21 08:10 Dose: 100 mg Documented by: Dexamethasone (Dexamethasone 4 Mg Tablet) 6 mg PO DAILY [facility] Enoxaparin Sodium (Enoxaparin 40 Mg/0.4 Ml Syringe) 40 mg SUBQ DAILY [facility] Last Admin: 07/06/21 08:16 Dose: 40 mg Documented by: Guaifenesin (Guaifenesin 100 Mg/5 Ml Udc) 100 mg PO Q6HR PRN PRN Reason: Cough Last Admin: 07/06/21 08:10 Dose: 100 mg Documented by: Remdesivir 100 mg/ Sodium (Chloride) 100 mls @ 200 mls/hr IV DAILY [facility] Stop: 07/09/21 09:29 Last Infusion: 07/06/21 11:12 Dose: Infused Documented by: Ketorolac Tromethamine (Ketorolac 30 Mg/Ml Vial) 30 mg IVP Q6HR PRN PRN Reason: PAIN Last Admin: 07/06/21 08:17 Dose: 30 mg Documented by: Ondansetron HCl (Ondansetron Odt 4 Mg Tablet) 4 mg TL Q6HR PRN PRN Reason: Nausea / Vomiting Ondansetron HCl (Ondansetron 4 Mg/2 Ml Vial) 4 mg IVP Q6HR PRN PRN Reason: Nausea / Vomiting Last Admin: 07/05/21 17:36 Dose: 4 mg Documented by: Oxycodone HCl (Oxycodone 5 Mg Tablet) 5 mg PO Q4HR PRN PRN Reason: Pain 5 to 7 Last Admin: 07/06/21 08:11 Dose: 5 mg Documented by: Pantoprazole Sodium (Pantoprazole 40 Mg Tablet) 40 mg PO QDAC [facility] Last Admin: 07/06/21 08:13 Dose: 40 mg Documented by: Sodium Chloride (Sodium Chloride Flush 0.9% 10 Ml Syringe) 10 ml IVP PRN PRN PRN Reason: NEEDED PER PROVIDER ORDERS Sodium Chloride (Sodium Chloride Flush 0.9% 10 Ml Syringe) 10 ml IVP 0100,0900,1700 [facility] Last Admin: 07/06/21 08:16 Dose: 10 ml Documented by: Zolpidem Tartrate (Zolpidem 5 Mg Tablet) 5 mg PO QPM PRN PRN Reason: Insomnia Last Admin: 07/05/21 21:49 Dose: 5 mg Documented by: No Known Home Medications 07/05/21 Objective - Vital Signs/Intake & Output Reviewed Vital Signs: Yes Vital Signs: Vital Signs x48h Temp Pulse Resp BP Pulse Ox 07/06/21 08:24 36.6 C 58 L 18 115/72 98 Intake & Output: Intake & Output 07/03/21 07/04/21 07/05/21 07/06/21 23:59 23:59 23:59 23:59 Intake Total 573.806 8495 1090 Output Total 400 2225 Balance 345.880 7518 1090 - Objective General Appearance: positive: No acute distress, Alert Eyes Bilateral: positive: PERRL, EOMI ENT: positive: No signs of dehydration Neck: positive: No JVD. negative: Stiff neck Respiratory: positive: No respiratory distress (At rest. He is comfortable. But as the conversation goes on he does start to get a little tachypneic.), Rales. negative: Wheezes, Rhonchi Cardiovascular: positive: Regular rate & rhythm. negative: Gallop/S4, Friction rub Abdomen: positive: Non-tender, No organomegaly, Nml bowel sounds, No distention Skin: positive: Warm, Dry Extremities: positive: Non-tender, No pedal edema. negative: Imtiaz's sign/cords Neurologic/Psychiatric: positive: Oriented x3, CN's nml (2-12), Motor nml, Sensation nml - Lab Results Fish Bones: 07/06/21 06:09 07/06/21 06:09 Other Labs: Lab Results x24hrs 07/06/21 07/06/21 Range/Units 06:09 06:09 WBC 5.1 (4.8-10.8) x10^3/uL RBC 4.93 (4.70-6.10) 10^6/uL Hgb 14.7 (14.0-18.0) g/dL Hct 45.3 (42.0-52.0) % MCV 91.9 (80.0-94.0) fL MCH 29.8 (27.0-31.0) pg MCHC 32.5 (32.0-36.0) g/dL RDW 11.4 L (12.0-15.0) % Plt Count 186 (130-450) 10^3/uL MPV 9.4 (7.4-11.4) fL Neut # (Auto) Not Reportable Lymph # (Auto) Not Reportable [place] # (Auto) Not Reportable Eos # (Auto) Not Reportable Baso # (Auto) Not Reportable Absolute Nucleated RBC Not Reportable Total Counted 100 Band Neuts % (Manual) 1 (0 - 10) % Abnorm Lymph % (Manual) 2 % Nucleated RBC % Not Reportable Neutrophils # (Manual) 3.8 (1.5-6.6) 10^3/uL Lymphocytes # (Manual) 1.1 L (1.5-3.5) 10^3/uL Monocytes # (Manual) 0.2 (0.0-1.0) 10^3/uL Eosinophils # (Manual) 0.0 (0-0.7) 10^3/uL Basophils # (Manual) 0.0 (0-0.1) 10^3/uL Differential Comment MANUAL DIFFERENTIAL WBC Morphology NORMAL APPEARANCE (NORMAL) Platelet Estimate NORMAL (130-450,000) (NORMAL) Platelet Morphology NORMAL APPEARANCE (NORMAL) RBC Morph Micro Appear NORMAL APPEARANCE (NORMAL) Sodium 140 (135-145) mmol/L Potassium 4.4 (3.5-5.0) mmol/L Chloride 101 (101-111) mmol/L Carbon Dioxide 28 (21-32) mmol/L Anion Gap 11.0 (6-13) BUN 22 H (6-20) mg/dL Creatinine 1.1 (0.6-1.2) mg/dL Estimated GFR (MDRD) 73 L (>89) Glucose 141 H (70-100) mg/dL Calcium 8.8 (8.5-10.3) mg/dL ABX Reporting Has patient been on IV antibiotics over the past 48 hours?: No Assessment/Plan - Problem List (1) Pleuritic chest pain Impression: D-dimer was not high on admit. He is on Lovenox. As such I believe he has pleurisy. Plan: Toradol as needed for 6 doses only is working. He is on Decadron. He is also on Protonix. (2) COVID-19 Impression: Pharmacy stated they have no policy against giving remdesivir at this time. In looking at the IDSA guidelines it is recommended for patients who are on supplemental oxygen but not for those on ECMO or intubated. As such I will add remdesivir Day #2/5 Decadron Day #3/ (3) Hypoxia Conclusion/Plan: He is gone up to 35 L high flow nasal cannula at 35% FiO2 to maintain O2 sats today. Just an incremental increase from yesterday. He was on nasal cannula on admission.
[2021-07-06] MEDS: DOCUSATE SODIUM 250 MG CAPSULE PO SCH (21:05)
[2021-07-06] MEDS: SENNA 8.6 MG TABLET PO SCH (21:06)
[2021-07-06] MEDS: polyethylene glycoL 3350 17 GM PACKET PO SCH (21:06)
[2021-07-07] MEDS: SODIUM CHLORIDE FLUSH 0.9% 10 ML SYRINGE IVP SCH ×3 (01:00→18:20)
[2021-07-07 06:06] LABS: EOSINOPHILS % (AUTO) 2.1 %; HCT - HEMATOCRIT 42.7 % (42.0-52.0); HGB - HEMOGLOBIN 14.1 g/dL (14.0-18.0); LYMPHOCYTES % (AUTO) 15.7 %; MEAN CORPUSCULAR HEMOGLOBIN 30.1 pg (27.0-31.0); MEAN CORPUSCULAR VOLUME 91.2 fL (80.0-94.0); MEAN PLATELET VOLUME 9.1 fL (7.4-11.4); PLT - PLATELET COUNT 200 10^3/uL (130-450); RED BLOOD COUNT 4.68 10^6/uL (4.70-6.10); RED CELL DISTRIBUTION WIDTH 11.3 % (12.0-15.0); WHITE BLOOD COUNT 8.9 x10^3/uL (4.8-10.8)
[2021-07-07 06:10] LABS: ABNORMAL LYMPHS % (MANUAL) 0 %; BAND NEUTROPHILS % (MANUAL) 0 %
[2021-07-07 06:14] LABS: CALCIUM 8.4 mg/dL (8.5-10.3); CREATININE 0.9 mg/dL (0.6-1.2); POTASSIUM 3.9 mmol/L (3.5-5.0)
[2021-07-07] MEDS: BENZONATATE 100 MG CAPSULE PO PRN (06:21)
[2021-07-07] MEDS: guaiFENesin 100 MG/5 ML UDC PO PRN ×3 (06:21→21:19)
[2021-07-07] MEDS: oxyCODONE 5 MG TABLET PO PRN ×2 (06:21→10:14)
[2021-07-07] MEDS: PANTOPRAZOLE 40 MG TABLET PO SCH (06:21)
[2021-07-07 07:25] LABS: BASOPHILS # (MANUAL) 0.1 10^3/uL (0-0.1); BASOPHILS % (MANUAL) 1 %; DIFFERENTIAL COMMENT MANUAL DIFFERENTIAL; EOSINOPHILS # (MANUAL) 0.3 10^3/uL (0-0.7); LYMPHOCYTES # (MANUAL) 5.1 10^3/uL (1.5-3.5); LYMPHOCYTES % (MANUAL) 57 %; MONOCYTES # (MANUAL) 0.5 10^3/uL (0.0-1.0); NEUTROPHILS # (MANUAL) 2.9 10^3/uL (1.5-6.6); PLATELET ESTIMATE, MANUAL NORMAL (130-450,000) (NORMAL); PLATELET MORPHOLOGY NORMAL APPEARANCE (NORMAL); RBC MORPHOLOGY (MULTIPLE) NORMAL APPEARANCE (NORMAL); WBC MORPHOLOGY (MULTIPLE) NORMAL APPEARANCE (NORMAL)
[2021-07-07] MEDS: SENNA 8.6 MG TABLET PO SCH (09:26)
[2021-07-07] MEDS: DOCUSATE SODIUM 250 MG CAPSULE PO SCH ×2 (09:26→13:03)
[2021-07-07] MEDS: polyethylene glycoL 3350 17 GM PACKET PO SCH (09:26)
[2021-07-07] MEDS: dexAMETHasone 4 MG TABLET PO SCH (09:27)
[2021-07-07] MEDS: ENOXAPARIN 40 MG/0.4 ML SYRINGE SUBQ SCH (09:28)
[2021-07-07] MEDS: REMDESIVIR 100MG VIAL 100 MG in SODIUM CHLORIDE 0.9% 100ML 100 ML IV SCH (09:29)
[2021-07-07] MEDS: ACETAMINOPHEN 325 MG TABLET PO PRN (10:13)
[2021-07-07] MEDS: KETOROLAC 30 MG/ML VIAL IVP PRN (10:14)
--- NOTE | 2021-07-07 14:36 | PROVIDER PROGRESS NOTE ---
Assessment/Plan - Problem List (1) COVID-19 Assessment/Plan: Patient Still needed high flow Of oxygen. He report he feel significantly shortness of breathing when he is on exertion. This is a patient day 3 of remdesivir, We will continue treatment with decatrol and Lovenox, Supplemental oxygen as needed. (2) Hypoxia Now patient is on 40 LPM on high flow with 34% of FiO2, pt has 97% of O2 sats. Patient reported he had significantly shortness of bruising on exertion. We will continue supplemental oxygen as needed, Continue vital signs monitor closely. - Current Meds Current Meds: Current Medications Generic Name Dose Route Start Last Admin Trade Name Freq PRN Reason Stop Dose Admin Acetaminophen 650 mg 07/04/21 17:54 07/07/21 10:13 Acetaminophen 325 Mg Tablet PO 650 mg Q4HR PRN Administration Pain 1 to 4 Benzonatate 100 mg 07/06/21 00:32 07/07/21 06:21 Benzonatate 100 Mg Capsule PO 100 mg TID PRN Administration Cough Dexamethasone 6 mg 07/07/21 09:00 07/07/21 09:27 Dexamethasone 4 Mg Tablet PO 6 mg DAILY [facility] Administration Docusate Sodium 250 - 500 mg 07/06/21 15:20 07/07/21 13:03 Docusate Sodium 250 Mg Capsule PO 500 mg DAILY [facility] Administration Enoxaparin Sodium 40 mg 07/05/21 09:00 07/07/21 09:28 Enoxaparin 40 Mg/0.4 Ml Syringe SUBQ 40 mg DAILY [facility] Administration Guaifenesin 100 mg 07/06/21 00:32 07/07/21 13:03 Guaifenesin 100 Mg/5 Ml Udc PO 100 mg Q6HR PRN Administration Cough Remdesivir 100 mg/ Sodium 100 mls @ 200 mls/hr 07/06/21 09:00 07/07/21 10:17 Chloride IV 07/09/21 09:29 Infused DAILY [facility] Infusion Ketorolac Tromethamine 30 mg 07/05/21 14:35 07/07/21 10:14 Ketorolac 30 Mg/Ml Vial IVP 30 mg Q6HR PRN Administration PAIN Ondansetron HCl 4 mg 07/04/21 17:54 07/05/21 17:36 Ondansetron 4 Mg/2 Ml Vial IVP 4 mg Q6HR PRN Administration Nausea / Vomiting Oxycodone HCl 5 mg 07/04/21 17:54 07/07/21 10:14 Oxycodone 5 Mg Tablet PO 5 mg Q4HR PRN Administration Pain 5 to 7 Pantoprazole Sodium 40 mg 07/05/21 07:00 07/07/21 06:21 Pantoprazole 40 Mg Tablet PO 40 mg QDAC [facility] Administration Polyethylene Glycol 17 gm 07/06/21 16:00 07/07/21 09:26 Polyethylene Glycol 3350 17 Gm Packet PO Not Given DAILY [facility] Senna 8.6 - 17.2 mg 07/06/21 16:00 07/07/21 09:26 Senna 8.6 Mg Tablet PO Not Given DAILY [facility] Sodium Chloride 10 ml 07/05/21 01:00 07/07/21 09:28 Sodium Chloride Flush 0.9% 10 Ml Syringe IVP 10 ml 0100,0900,1700 [facility] Administration Zolpidem Tartrate 5 mg 07/04/21 17:54 07/05/21 21:49 Zolpidem 5 Mg Tablet PO 5 mg QPM PRN Administration Insomnia - Lab Result Fish Bone Diagrams: 07/07/21 05:59 07/07/21 05:59 Subjective - Subjective Patient Reports: Feeling Better Objective Vital Signs: Vital Signs - 24 hr 07/06/21 07/06/21 07/07/21 17:01 20:52 00:14 Temperature 36.8 C 36.5 C Heart Rate [ 68 56 L Brachial] Respiratory 25 H 29 H 18 Rate Blood Pressure [Left Brachial artery] Blood Pressure 114/67 115/76 108/62 [Right Brachial artery] O2 Saturation 94 96 96 07/07/21 07/07/21 06:31 08:00 Temperature 36.3 C L Heart Rate [ 66 Brachial] Respiratory 18 Rate Blood Pressure 117/68 [Left Brachial artery] Blood Pressure [Right Brachial artery] O2 Saturation 90 L 97 Oxygen O2 Source [facility] Oxygen Flow Rate 5 I&O (Last 24 Hrs): Intake and Output Totals x24h 07/05/21 07/06/21 07/07/21 23:59 23:59 23:59 Intake Total 3495 1390 200 Output Total 2225 750 750 Balance 1270 640 -550 General: Alert, Oriented x3, Cooperative, Mild distress HEENT: Atraumatic Neck: Supple Lymphatic: no adenopathy Neuro: Alert, Non Focal, Oriented Times 3 Cardiovascular: Regular rate, Normal S1, Normal S2 Respiratory: Chest non-tender Abdomen: Normal bowel sounds, Soft Extremities: Normal pulses - Results Results: Laboratory Results WBC 8.9 x10^3/uL (4.8-10.8) 07/07/21 05:59 RBC 4.68 10^6/uL (4.70-6.10) L 07/07/21 05:59 Hgb 14.1 g/dL (14.0-18.0) 07/07/21 05:59 Hct 42.7 % (42.0-52.0) 07/07/21 05:59 MCV 91.2 fL (80.0-94.0) 07/07/21 05:59 MCH 30.1 pg (27.0-31.0) 07/07/21 05:59 MCHC 33.0 g/dL (32.0-36.0) 07/07/21 05:59 RDW 11.3 % (12.0-15.0) L 07/07/21 05:59 Plt Count 200 10^3/uL (130-450) 07/07/21 05:59 MPV 9.1 fL (7.4-11.4) 07/07/21 05:59 Neut # (Auto) Not Reportable 07/07/21 05:59 Lymph # (Auto) Not Reportable 07/07/21 05:59 Edgar # (Auto) Not Reportable 07/07/21 05:59 Eos # (Auto) Not Reportable 07/07/21 05:59 Baso # (Auto) Not Reportable 07/07/21 05:59 Absolute Nucleated RBC Not Reportable 07/07/21 05:59 Total Counted 100 07/07/21 05:59 Band Neuts % (Manual) 0 % (0-10) 07/07/21 05:59 Reactive Lymphs % (Man) 8 % 07/05/21 06:54 Abnorm Lymph % (Manual) 0 % 07/07/21 05:59 Nucleated RBC % Not Reportable 07/07/21 05:59 Neutrophils # (Manual) 2.9 10^3/uL (1.5-6.6) 07/07/21 05:59 Lymphocytes # (Manual) 5.1 10^3/uL (1.5-3.5) H 07/07/21 05:59 Monocytes # (Manual) 0.5 10^3/uL (0.0-1.0) 07/07/21 05:59 Eosinophils # (Manual) 0.3 10^3/uL (0-0.7) 07/07/21 05:59 Basophils # (Manual) 0.1 10^3/uL (0-0.1) 07/07/21 05:59 Differential Comment MANUAL DIFFERENTIAL 07/07/21 05:59 Manual Slide Review Indicated 07/05/21 06:54 WBC Morphology NORMAL APPEARANCE (NORMAL) 07/07/21 05:59 Platelet Estimate NORMAL (130-450,000) (NORMAL) 07/07/21 05:59 Platelet Morphology NORMAL APPEARANCE (NORMAL) 07/07/21 05:59 RBC Morph Micro Appear NORMAL APPEARANCE (NORMAL) 07/07/21 05:59 D-Dimer < 200.0 ng/mL (200.0-255.0) L 07/04/21 17:13 VBG pH 7.432 (7.31-7.41) H 07/04/21 17:13 VBG pCO2 33.2 mmHg (41-51) L 07/04/21 17:13 VBG pO2 59.0 mmHg (25-47) H 07/04/21 17:13 VBG HCO3 21.6 mmol/L (23-28) L 07/04/21 17:13 VBG Total CO2 22.7 mmol/L (24-29) L 07/04/21 17:13 VBG O2 Saturation 90.3 % (60-80) H 07/04/21 17:13 VBG Base Excess -1.7 mmol/L (-2 - +2) 07/04/21 17:13 Sodium 137 mmol/L (135-145) 07/07/21 05:59 Potassium 3.9 mmol/L (3.5-5.0) 07/07/21 05:59 Chloride 102 mmol/L (101-111) 07/07/21 05:59 Carbon Dioxide 26 mmol/L (21-32) 07/07/21 05:59 Anion Gap 9.0 (6-13) 07/07/21 05:59 BUN 18 mg/dL (6-20) 07/07/21 05:59 Creatinine 0.9 mg/dL (0.6-1.2) 07/07/21 05:59 Estimated GFR (MDRD) 92 (>89) 07/07/21 05:59 Glucose 120 mg/dL (70-100) H 07/07/21 05:59 Calcium 8.4 mg/dL (8.5-10.3) L 07/07/21 05:59 Phosphorus 4.5 mg/dL (2.5-4.6) 07/04/21 17:13 Magnesium 2.2 mg/dL (1.7-2.8) 07/04/21 17:13 Nasal Adenovirus (PCR) NOT DETECTED 07/04/21 17:30 Nasal B. parapertussis DNA (PCR) NOT DETECTED 07/04/21 17:30 Nasal Coronavir 229E PCR NOT DETECTED 07/04/21 17:30 Nasal Coronavir HKU1 PCR NOT DETECTED 07/04/21 17:30 Nasal Coronavir NL63 PCR NOT DETECTED 07/04/21 17:30 Nasal Coronavir OC43 PCR NOT DETECTED 07/04/21 17:30 Nasal Enterovir/Rhinovir PCR NOT DETECTED 07/04/21 17:30 Nasal Influenza B PCR NOT DETECTED 07/04/21 17:30 Nasal Influenza A PCR NOT DETECTED 07/04/21 17:30 Nasal Parainfluen 1 PCR NOT DETECTED 07/04/21 17:30 Nasal Parainfluen 2 PCR NOT DETECTED 07/04/21 17:30 Nasal Parainfluen 3 PCR NOT DETECTED 07/04/21 17:30 Nasal Parainfluen 4 PCR NOT DETECTED 07/04/21 17:30 Nasal RSV (PCR) NOT DETECTED 07/04/21 17:30 Nasal B.pertussis DNA PCR NOT DETECTED 07/04/21 17:30 Nasal C.pneumoniae (PCR) NOT DETECTED 07/04/21 17:30 Blane Human Metapneumo PCR NOT DETECTED 07/04/21 17:30 Nasal M.pneumoniae (PCR) NOT DETECTED 07/04/21 17:30 Nasal SARS-CoV-2 (PCR) DETECTED A 07/04/21 17:30 ABX Reporting Has patient been on IV antibiotics over the past 48 hours?: No Current Medications - Current Medications Current Medications: Active Medications Acetaminophen (Acetaminophen 325 Mg Tablet) 650 mg PO Q4HR PRN PRN Reason: Pain 1 to 4 Last Admin: 07/07/21 10:13 Dose: 650 mg Documented by: Benzonatate (Benzonatate 100 Mg Capsule) 100 mg PO TID PRN PRN Reason: Cough Last Admin: 07/07/21 06:21 Dose: 100 mg Documented by: Dexamethasone (Dexamethasone 4 Mg Tablet) 6 mg PO DAILY [facility] Last Admin: 07/07/21 09:27 Dose: 6 mg Documented by: Docusate Sodium (Docusate Sodium 250 Mg Capsule) 250 - 500 mg PO DAILY [facility] Last Admin: 07/07/21 13:03 Dose: 500 mg Documented by: Enoxaparin Sodium (Enoxaparin 40 Mg/0.4 Ml Syringe) 40 mg SUBQ DAILY [facility] Last Admin: 07/07/21 09:28 Dose: 40 mg Documented by: Guaifenesin (Guaifenesin 100 Mg/5 Ml Udc) 100 mg PO Q6HR PRN PRN Reason: Cough Last Admin: 07/07/21 13:03 Dose: 100 mg Documented by: Remdesivir 100 mg/ Sodium (Chloride) 100 mls @ 200 mls/hr IV DAILY [facility] Stop: 07/09/21 09:29 Last Infusion: 07/07/21 10:17 Dose: Infused Documented by: Ketorolac Tromethamine (Ketorolac 30 Mg/Ml Vial) 30 mg IVP Q6HR PRN PRN Reason: PAIN Last Admin: 07/07/21 10:14 Dose: 30 mg Documented by: Ondansetron HCl (Ondansetron Odt 4 Mg Tablet) 4 mg TL Q6HR PRN PRN Reason: Nausea / Vomiting Ondansetron HCl (Ondansetron 4 Mg/2 Ml Vial) 4 mg IVP Q6HR PRN PRN Reason: Nausea / Vomiting Last Admin: 07/05/21 17:36 Dose: 4 mg Documented by: Oxycodone HCl (Oxycodone 5 Mg Tablet) 5 mg PO Q4HR PRN PRN Reason: Pain 5 to 7 Last Admin: 07/07/21 10:14 Dose: 5 mg Documented by: Pantoprazole Sodium (Pantoprazole 40 Mg Tablet) 40 mg PO QDAC [facility] Last Admin: 07/07/21 06:21 Dose: 40 mg Documented by: Polyethylene Glycol (Polyethylene Glycol 3350 17 Gm Packet) 17 gm PO DAILY [facility] Last Admin: 07/07/21 09:26 Dose: Not Given Documented by: Senna (Senna 8.6 Mg Tablet) 8.6 - 17.2 mg PO DAILY [facility] Last Admin: 07/07/21 09:26 Dose: Not Given Documented by: Sodium Chloride (Sodium Chloride Flush 0.9% 10 Ml Syringe) 10 ml IVP PRN PRN PRN Reason: NEEDED PER PROVIDER ORDERS Sodium Chloride (Sodium Chloride Flush 0.9% 10 Ml Syringe) 10 ml IVP 0100,0900,1700 [facility] Last Admin: 07/07/21 09:28 Dose: 10 ml Documented by: Zolpidem Tartrate (Zolpidem 5 Mg Tablet) 5 mg PO QPM PRN PRN Reason: Insomnia Last Admin: 07/05/21 21:49 Dose: 5 mg Documented by: No Known Home Medications 07/05/21
[2021-07-07] MEDS ORDERED: SENNA 8.6 MG TABLET PO SCH (15:18)
[2021-07-07] MEDS ORDERED: DOCUSATE SODIUM 250 MG CAPSULE PO SCH (15:18)
[2021-07-07] MEDS ORDERED: polyethylene glycoL 3350 17 GM PACKET PO SCH (15:18)
[2021-07-08] MEDS: oxyCODONE 5 MG TABLET PO PRN ×3 (00:12→21:29)
[2021-07-08] MEDS: SODIUM CHLORIDE FLUSH 0.9% 10 ML SYRINGE IVP SCH ×3 (03:55→17:17)
[2021-07-08] MEDS: BENZONATATE 100 MG CAPSULE PO PRN ×2 (06:46→17:17)
[2021-07-08] MEDS: guaiFENesin 100 MG/5 ML UDC PO PRN ×2 (06:46→17:17)
[2021-07-08] MEDS: PANTOPRAZOLE 40 MG TABLET PO SCH (06:50)
[2021-07-08 07:58] LABS: BASOPHILS % (AUTO) 0.2 %; EOSINOPHILS # (AUTO) 0.1 10^3/uL (0.0-0.7); EOSINOPHILS % (AUTO) 1.2 %; HCT - HEMATOCRIT 44.9 % (42.0-52.0); HGB - HEMOGLOBIN 14.7 g/dL (14.0-18.0); LYMPHOCYTES # (AUTO) 1.6 10^3/uL (1.5-3.5); LYMPHOCYTES % (AUTO) 24.5 %; MEAN CORPUSCULAR HEMOGLOBIN 30.1 pg (27.0-31.0); MEAN CORPUSCULAR HGB CONC 32.7 g/dL (32.0-36.0); MONOCYTES # (AUTO) 0.7 10^3/uL (0.0-1.0); MONOCYTES % (AUTO) 10.2 %; NEUTROPHILS # (AUTO) 4.1 10^3/uL (1.5-6.6); NEUTROPHILS % (AUTO) 63.7 %; PLT - PLATELET COUNT 243 10^3/uL (130-450); RED BLOOD COUNT 4.88 10^6/uL (4.70-6.10); RED CELL DISTRIBUTION WIDTH 11.2 % (12.0-15.0); WHITE BLOOD COUNT 6.5 x10^3/uL (4.8-10.8)
[2021-07-08 08:05] LABS: CALCIUM 8.7 mg/dL (8.5-10.3); CREATININE 0.9 mg/dL (0.6-1.2); POTASSIUM 3.8 mmol/L (3.5-5.0)
[2021-07-08 08:25] LABS: PLATELET ESTIMATE, MANUAL NORMAL (130-450,000) (NORMAL); PLATELET MORPHOLOGY NORMAL APPEARANCE (NORMAL); RBC MORPHOLOGY (MULTIPLE) NORMAL APPEARANCE (NORMAL); WBC MORPHOLOGY (MULTIPLE) NORMAL APPEARANCE (NORMAL)
[2021-07-08 08:26] LABS: DIFFERENTIAL COMMENT MANUAL=AUTO DIFF
[2021-07-08] MEDS: REMDESIVIR 100MG VIAL 100 MG in SODIUM CHLORIDE 0.9% 100ML 100 ML IV SCH (10:14)
[2021-07-08] MEDS: polyethylene glycoL 3350 17 GM PACKET PO SCH (10:16)
[2021-07-08] MEDS: dexAMETHasone 4 MG TABLET PO SCH (10:17)
[2021-07-08] MEDS: SENNA 8.6 MG TABLET PO SCH (10:18)
[2021-07-08] MEDS: DOCUSATE SODIUM 250 MG CAPSULE PO SCH (10:20)
[2021-07-08] MEDS: ENOXAPARIN 40 MG/0.4 ML SYRINGE SUBQ SCH (10:21)
--- NOTE | 2021-07-08 15:26 | PROVIDER PROGRESS NOTE ---
Assessment/Plan - Problem List (1) COVID-19 Assessment/Plan: 07/08 slightly improved. pt report he feel less shortness of breath when he went to bathroom, continue remdesivir, decatrol and Lovenox, Supplemental oxygen as needed. Patient Still needed high flow Of oxygen. He report he feel significantly sh ortness of breathing when he is on exertion. This is a patient day 3 of remdesivir, We will continue treatment with decatrol and Lovenox, Supplemental oxygen as needed. (2) Hypoxia 07/08 slightly improved. reduced high flow O2 to 35 lpm, 35% FiO2, continue pulse oxymetro, continue supplement of O2 as needed Now patient is on 40 LPM on high flow with 34% of FiO2, pt has 97% of O2 sats. Patient reported he had significantly shortness of bruising on exertion. We will continue supplemental oxygen as needed, Continue vital signs monitor closely. - Current Meds Current Meds: Current Medications Generic Name Dose Route Start Last Admin Trade Name Freq PRN Reason Stop Dose Admin Acetaminophen 650 mg 07/04/21 17:54 07/07/21 10:13 Acetaminophen 325 Mg Tablet PO 650 mg Q4HR PRN Administration Pain 1 to 4 Benzonatate 100 mg 07/06/21 00:32 07/08/21 06:46 Benzonatate 100 Mg Capsule PO 100 mg TID PRN Administration Cough Dexamethasone 6 mg 07/07/21 09:00 07/08/21 10:17 Dexamethasone 4 Mg Tablet PO 6 mg DAILY [facility] Administration Docusate Sodium 250 - 500 mg 07/06/21 15:20 07/08/21 10:20 Docusate Sodium 250 Mg Capsule PO 250 mg DAILY [facility] Administration Enoxaparin Sodium 40 mg 07/05/21 09:00 07/08/21 10:21 Enoxaparin 40 Mg/0.4 Ml Syringe SUBQ 40 mg DAILY [facility] Administration Guaifenesin 100 mg 07/06/21 00:32 07/08/21 06:46 Guaifenesin 100 Mg/5 Ml Udc PO 100 mg Q6HR PRN Administration Cough Remdesivir 100 mg/ Sodium 100 mls @ 200 mls/hr 07/06/21 09:00 07/08/21 10:14 Chloride IV 07/09/21 09:29 200 mls/hr DAILY [facility] Administration Ketorolac Tromethamine 30 mg 07/05/21 14:35 07/07/21 10:14 Ketorolac 30 Mg/Ml Vial IVP 30 mg Q6HR PRN Administration PAIN Ondansetron HCl 4 mg 07/04/21 17:54 07/05/21 17:36 Ondansetron 4 Mg/2 Ml Vial IVP 4 mg Q6HR PRN Administration Nausea / Vomiting Oxycodone HCl 5 mg 07/04/21 17:54 07/08/21 10:18 Oxycodone 5 Mg Tablet PO 5 mg Q4HR PRN Administration Pain 5 to 7 Pantoprazole Sodium 40 mg 07/05/21 07:00 07/08/21 06:50 Pantoprazole 40 Mg Tablet PO 40 mg QDAC [facility] Administration Polyethylene Glycol 17 gm 07/06/21 16:00 07/08/21 10:16 Polyethylene Glycol 3350 17 Gm Packet PO 17 gm DAILY [facility] Administration Senna 8.6 - 17.2 mg 07/06/21 16:00 07/08/21 10:18 Senna 8.6 Mg Tablet PO 8.6 mg DAILY [facility] Administration Sodium Chloride 10 ml 07/05/21 01:00 07/08/21 03:55 Sodium Chloride Flush 0.9% 10 Ml Syringe IVP 10 ml 0100,0900,1700 [facility] Administration Zolpidem Tartrate 5 mg 07/04/21 17:54 07/05/21 21:49 Zolpidem 5 Mg Tablet PO 5 mg QPM PRN Administration Insomnia - Lab Result Fish Bone Diagrams: 07/08/21 07:28 07/08/21 07:28 Subjective - Subjective Patient Reports: Feeling Better Objective Vital Signs: Vital Signs - 24 hr 07/07/21 07/07/21 07/08/21 16:00 23:58 08:00 Temperature 36.9 C 36.7 C 36.6 C Heart Rate [ 64 51 L 62 Brachial] Respiratory 18 18 17 Rate Blood Pressure 111/77 [Left Brachial artery] Blood Pressure 122/78 117/82 H [Right Brachial artery] O2 Saturation 99 99 97 Oxygen O2 Source [facility] Oxygen Flow Rate 5 I&O (Last 24 Hrs): Intake and Output Totals x24h 07/06/21 07/07/21 07/08/21 23:59 23:59 23:59 Intake Total 1390 700 450 Output Total 750 1250 675 Balance 640 -550 -225 General: Alert, Oriented x3, Cooperative, No acute distress HEENT: Atraumatic, PERRLA Neck: Supple Lymphatic: no adenopathy Neuro: Alert, Non Focal, Oriented Times 3 Cardiovascular: Regular rate, Normal S1, Normal S2 Respiratory: Chest non-tender, No respiratory distress Abdomen: Normal bowel sounds, Soft Extremities: Normal pulses - Results Results: Laboratory Results WBC 6.5 x10^3/uL (4.8-10.8) 07/08/21 07:28 RBC 4.88 10^6/uL (4.70-6.10) 07/08/21 07:28 Hgb 14.7 g/dL (14.0-18.0) 07/08/21 07:28 Hct 44.9 % (42.0-52.0) 07/08/21 07:28 MCV 92.0 fL (80.0-94.0) 07/08/21 07:28 MCH 30.1 pg (27.0-31.0) 07/08/21 07:28 MCHC 32.7 g/dL (32.0-36.0) 07/08/21 07:28 RDW 11.2 % (12.0-15.0) L 07/08/21 07:28 Plt Count 243 10^3/uL (130-450) 07/08/21 07:28 MPV 9.0 fL (7.4-11.4) 07/08/21 07:28 Neut # (Auto) 4.1 10^3/uL (1.5-6.6) 07/08/21 07:28 Lymph # (Auto) 1.6 10^3/uL (1.5-3.5) 07/08/21 07:28 Harlan # (Auto) 0.7 10^3/uL (0.0-1.0) 07/08/21 07:28 Eos # (Auto) 0.1 10^3/uL (0.0-0.7) 07/08/21 07:28 Baso # (Auto) 0.0 10^3/uL (0.0-0.1) 07/08/21 07:28 Absolute Nucleated RBC 0.00 x10^3/uL 07/08/21 07:28 Total Counted 100 07/07/21 05:59 Band Neuts % (Manual) Not Reportable 07/08/21 07:28 Reactive Lymphs % (Man) 8 % 07/05/21 06:54 Abnorm Lymph % (Manual) Not Reportable 07/08/21 07:28 Nucleated RBC % 0.0 /100WBC 07/08/21 07:28 Neutrophils # (Manual) Not Reportable 07/08/21 07:28 Lymphocytes # (Manual) Not Reportable 07/08/21 07:28 Monocytes # (Manual) Not Reportable 07/08/21 07:28 Eosinophils # (Manual) Not Reportable 07/08/21 07:28 Basophils # (Manual) Not Reportable 07/08/21 07:28 Differential Comment MANUAL=AUTO DIFF 07/08/21 07:28 Manual Slide Review Indicated 07/05/21 06:54 WBC Morphology NORMAL APPEARANCE (NORMAL) 07/08/21 07:28 Platelet Estimate NORMAL (130-450,000) (NORMAL) 07/08/21 07:28 Platelet Morphology NORMAL APPEARANCE (NORMAL) 07/08/21 07:28 RBC Morph Micro Appear NORMAL APPEARANCE (NORMAL) 07/08/21 07:28 D-Dimer < 200.0 ng/mL (200.0-255.0) L 07/04/21 17:13 VBG pH 7.432 (7.31-7.41) H 07/04/21 17:13 VBG pCO2 33.2 mmHg (41-51) L 07/04/21 17:13 VBG pO2 59.0 mmHg (25-47) H 07/04/21 17:13 VBG HCO3 21.6 mmol/L (23-28) L 07/04/21 17:13 VBG Total CO2 22.7 mmol/L (24-29) L 07/04/21 17:13 VBG O2 Saturation 90.3 % (60-80) H 07/04/21 17:13 VBG Base Excess -1.7 mmol/L (-2 - +2) 07/04/21 17:13 Sodium 139 mmol/L (135-145) 07/08/21 07:28 Potassium 3.8 mmol/L (3.5-5.0) 07/08/21 07:28 Chloride 101 mmol/L (101-111) 07/08/21 07:28 Carbon Dioxide 29 mmol/L (21-32) 07/08/21 07:28 Anion Gap 9.0 (6-13) 07/08/21 07:28 BUN 19 mg/dL (6-20) 07/08/21 07:28 Creatinine 0.9 mg/dL (0.6-1.2) 07/08/21 07:28 Estimated GFR (MDRD) 92 (>89) 07/08/21 07:28 Glucose 100 mg/dL (70-100) 07/08/21 07:28 Calcium 8.7 mg/dL (8.5-10.3) 07/08/21 07:28 Phosphorus 4.5 mg/dL (2.5-4.6) 07/04/21 17:13 Magnesium 2.2 mg/dL (1.7-2.8) 07/04/21 17:13 Nasal Adenovirus (PCR) NOT DETECTED 07/04/21 17:30 Nasal B. parapertussis DNA (PCR) NOT DETECTED 07/04/21 17:30 Nasal Coronavir 229E PCR NOT DETECTED 07/04/21 17:30 Nasal Coronavir HKU1 PCR NOT DETECTED 07/04/21 17:30 Nasal Coronavir NL63 PCR NOT DETECTED 07/04/21 17:30 Nasal Coronavir OC43 PCR NOT DETECTED 07/04/21 17:30 Nasal Enterovir/Rhinovir PCR NOT DETECTED 07/04/21 17:30 Nasal Influenza B PCR NOT DETECTED 07/04/21 17:30 Nasal Influenza A PCR NOT DETECTED 07/04/21 17:30 Nasal Parainfluen 1 PCR NOT DETECTED 07/04/21 17:30 Nasal Parainfluen 2 PCR NOT DETECTED 07/04/21 17:30 Nasal Parainfluen 3 PCR NOT DETECTED 07/04/21 17:30 Nasal Parainfluen 4 PCR NOT DETECTED 07/04/21 17:30 Nasal RSV (PCR) NOT DETECTED 07/04/21 17:30 Nasal B.pertussis DNA PCR NOT DETECTED 07/04/21 17:30 Nasal C.pneumoniae (PCR) NOT DETECTED 07/04/21 17:30 Blane Human Metapneumo PCR NOT DETECTED 07/04/21 17:30 Nasal M.pneumoniae (PCR) NOT DETECTED 07/04/21 17:30 Nasal SARS-CoV-2 (PCR) DETECTED A 07/04/21 17:30 ABX Reporting Has patient been on IV antibiotics over the past 48 hours?: No Current Medications - Current Medications Current Medications: Active Medications Acetaminophen (Acetaminophen 325 Mg Tablet) 650 mg PO Q4HR PRN PRN Reason: Pain 1 to 4 Last Admin: 07/07/21 10:13 Dose: 650 mg Documented by: Benzonatate (Benzonatate 100 Mg Capsule) 100 mg PO TID PRN PRN Reason: Cough Last Admin: 07/08/21 06:46 Dose: 100 mg Documented by: Dexamethasone (Dexamethasone 4 Mg Tablet) 6 mg PO DAILY [facility] Last Admin: 07/08/21 10:17 Dose: 6 mg Documented by: Docusate Sodium (Docusate Sodium 250 Mg Capsule) 250 - 500 mg PO DAILY [facility] Last Admin: 07/08/21 10:20 Dose: 250 mg Documented by: Enoxaparin Sodium (Enoxaparin 40 Mg/0.4 Ml Syringe) 40 mg SUBQ DAILY [facility] Last Admin: 07/08/21 10:21 Dose: 40 mg Documented by: Guaifenesin (Guaifenesin 100 Mg/5 Ml Udc) 100 mg PO Q6HR PRN PRN Reason: Cough Last Admin: 07/08/21 06:46 Dose: 100 mg Documented by: Remdesivir 100 mg/ Sodium (Chloride) 100 mls @ 200 mls/hr IV DAILY [facility] Stop: 07/09/21 09:29 Last Admin: 07/08/21 10:14 Dose: 200 mls/hr Documented by: Ketorolac Tromethamine (Ketorolac 30 Mg/Ml Vial) 30 mg IVP Q6HR PRN PRN Reason: PAIN Last Admin: 07/07/21 10:14 Dose: 30 mg Documented by: Ondansetron HCl (Ondansetron Odt 4 Mg Tablet) 4 mg TL Q6HR PRN PRN Reason: Nausea / Vomiting Ondansetron HCl (Ondansetron 4 Mg/2 Ml Vial) 4 mg IVP Q6HR PRN PRN Reason: Nausea / Vomiting Last Admin: 07/05/21 17:36 Dose: 4 mg Documented by: Oxycodone HCl (Oxycodone 5 Mg Tablet) 5 mg PO Q4HR PRN PRN Reason: Pain 5 to 7 Last Admin: 07/08/21 10:18 Dose: 5 mg Documented by: Pantoprazole Sodium (Pantoprazole 40 Mg Tablet) 40 mg PO QDAC [facility] Last Admin: 07/08/21 06:50 Dose: 40 mg Documented by: Polyethylene Glycol (Polyethylene Glycol 3350 17 Gm Packet) 17 gm PO DAILY [facility] Last Admin: 07/08/21 10:16 Dose: 17 gm Documented by: Senna (Senna 8.6 Mg Tablet) 8.6 - 17.2 mg PO DAILY [facility] Last Admin: 07/08/21 10:18 Dose: 8.6 mg Documented by: Sodium Chloride (Sodium Chloride Flush 0.9% 10 Ml Syringe) 10 ml IVP PRN PRN PRN Reason: NEEDED PER PROVIDER ORDERS Sodium Chloride (Sodium Chloride Flush 0.9% 10 Ml Syringe) 10 ml IVP 0100,0900,1700 [facility] Last Admin: 07/08/21 03:55 Dose: 10 ml Documented by: Zolpidem Tartrate (Zolpidem 5 Mg Tablet) 5 mg PO QPM PRN PRN Reason: Insomnia Last Admin: 07/05/21 21:49 Dose: 5 mg Documented by: No Known Home Medications 07/05/21
[2021-07-09] MEDS: SODIUM CHLORIDE FLUSH 0.9% 10 ML SYRINGE IVP SCH ×2 (00:36→08:11)
[2021-07-09 05:53] LABS: BASOPHILS % (AUTO) 0.1 %; EOSINOPHILS % (AUTO) 0.1 %; HCT - HEMATOCRIT 44.3 % (42.0-52.0); HGB - HEMOGLOBIN 14.4 g/dL (14.0-18.0); LYMPHOCYTES # (AUTO) 1.5 10^3/uL (1.5-3.5); LYMPHOCYTES % (AUTO) 19.5 %; MEAN CORPUSCULAR HEMOGLOBIN 29.9 pg (27.0-31.0); MEAN CORPUSCULAR HGB CONC 32.5 g/dL (32.0-36.0); MEAN CORPUSCULAR VOLUME 92.1 fL (80.0-94.0); MEAN PLATELET VOLUME 8.8 fL (7.4-11.4); MONOCYTES # (AUTO) 0.6 10^3/uL (0.0-1.0); MONOCYTES % (AUTO) 8.2 %; NEUTROPHILS # (AUTO) 5.5 10^3/uL (1.5-6.6); NEUTROPHILS % (AUTO) 71.7 %; PLT - PLATELET COUNT 250 10^3/uL (130-450); RED BLOOD COUNT 4.81 10^6/uL (4.70-6.10); WHITE BLOOD COUNT 7.6 x10^3/uL (4.8-10.8)
[2021-07-09 06:00] LABS: CALCIUM 8.6 mg/dL (8.5-10.3); CREATININE 0.9 mg/dL (0.6-1.2)
[2021-07-09] MEDS: guaiFENesin 100 MG/5 ML UDC PO PRN (06:02)
[2021-07-09] MEDS: BENZONATATE 100 MG CAPSULE PO PRN (06:02)
[2021-07-09] MEDS: PANTOPRAZOLE 40 MG TABLET PO SCH (06:02)
[2021-07-09 08:06] VITALS: BP 122/78
[2021-07-09] MEDS: SENNA 8.6 MG TABLET PO SCH (08:07)
[2021-07-09] MEDS: DOCUSATE SODIUM 250 MG CAPSULE PO SCH (08:07)
[2021-07-09] MEDS: polyethylene glycoL 3350 17 GM PACKET PO SCH (08:07)
[2021-07-09] MEDS: oxyCODONE 5 MG TABLET PO PRN (08:09)
[2021-07-09] MEDS: dexAMETHasone 4 MG TABLET PO SCH (08:09)
[2021-07-09] MEDS: ENOXAPARIN 40 MG/0.4 ML SYRINGE SUBQ SCH (08:10)
[2021-07-09] MEDS: REMDESIVIR 100MG VIAL 100 MG in SODIUM CHLORIDE 0.9% 100ML 100 ML IV SCH (09:39)
--- NOTE | 2021-07-09 11:59 | Discharge Plan ---
Discharge Plan Problem Reviewed?: Yes Disposition: Home, Self Care Condition: Stable Prescriptions: oxyCODONE [Roxicodone] 5 mg PO Q4HR PRN #20 tablet PRN Reason: Pain 5 to 7 Benzonatate [Tessalon] 100 mg PO TID PRN #30 cap PRN Reason: Cough Diet: Regular Activity Restrictions: Activity as Tolerated Shower Restrictions: No (fall precaution) Instruction Topics: COVID-19 [facility], COVID-19 [facility] Department Statement, Oxycodone tablets or capsules Health Concerns: Covid 19 Plan of Treatment: you have no Respiratory distress. You had 97% oxygen saturation on room air. You may follow-up with [facility] and [facility] COVID-19 precautions. Care Goals: Stabilization and resolved for your COVID-19 Assessment: Discussed the care plan with you, you understood Additional Instructions or Follow Up instructions: You may follow-up with your PCP as needed. Should your symptoms return or worsen, or you feel shortness of breath, you may return to ER or call 911 for help. No Smoking: If you smoke, Please STOP! Call for help. Follow-up with: Provider,Other [Primary Care Provider] -
--- NOTE | 2021-07-09 12:08 | DISCHARGE SUMMARY ---
Discharge Summary Admit Date: 07/04/21 Discharge Date: 07/09/21 Discharging Provider: Arcadio Valdez Condition at Discharge: Stable Discharge Disposition: 01 Home, Self Care Discharge Facility Name: home - DIAGNOSES Discharge Diagnoses with Status of Each Condition: (1) pneumonia COVID-19 Patient has no respiratory distress on rest and exertion. patient had 97% oxygen saturation on room air. pt is prescribed PRN Tessalon for cough and PRN OXycodon for his pain when he cough (2) Hypoxia resolved. - HPI History of Present Illness: refer from Dr. Lees's HPI on 07/04/21 45-year-old white male whose past medical history significant for only GERD and kidney stones and an episode of chest pain in February 2020 that comes in with cough, shortness of breath and fatigue. He is Covid positive. Thinks that on June 23. He tested positive for home test on June 24. His 12-year-old son is also sick. He was seen at [facility] but not felt to meet criteria for admission and discharge. He is now day 11 of illness. He comes in because he is just too tired and too short of breath.He denies chest pain, cough. Just exhausted. Short of breath. Has no GI complaints. 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 No radiation down the legs Temperature is 36.6. Heart rate is 94. Blood pressure 132/88. Respirations 33. He is 88% on room air. On physical examination he is alert and oriented. Without respiratory distress. Lungs are clear. BMP is normal except for random glucose of 119. White cell count and hemoglobin and hematocrit are normal. D- dimer is less than 200. Venous blood gases a pH of 7.43, PCO2 33, PO2 59. Chest x-ray has multifocal opacities at the lung bases most consistent with Covid pneumonia given his history. As such the emergency room has asked us to admit the patient for Covid. He is beyond the window of opportunity for remdesivir and will be placed on Decadron, IV fluids, and supportive measures. - ALLERGIES Allergies/Adverse Reactions: Allergies Allergy/AdvReac Type Severity Reaction Status Date / Time No Known Drug Allergies Allergy Verified 03/04/20 16:39 - MEDICATIONS Home Medications: Ambulatory Orders Medication Instructions Recorded Confirmed Benzonatate [Tessalon] 100 mg PO TID PRN #30 cap 07/09/21 oxyCODONE [Roxicodone] 5 mg PO Q4HR PRN #20 tablet 07/09/21 - PHYSICAL EXAM AT DISCHARGE General Appearance: positive: No acute distress, Alert. negative: Lethargic Eyes Bilateral: positive: Normal inspection, PERRL, No lid inflammation ENT: positive: ENT inspection nml, No signs of dehydration. negative: Purulent nasal drainage Neck: positive: Nml inspection, Trachea midline. negative: Thyromegaly, Tracheal deviation Respiratory: positive: Chest non-tender, No respiratory distress. negative: Wheezes Cardiovascular: positive: Regular rate & rhythm, No murmur. negative: Tachycardia, Bradycardia, Systolic murmur, Diastolic murmur Peripheral Pulses: positive: 2+ Abdomen: positive: Non-tender, Nml bowel sounds, No distention. negative: Tenderness Back: positive: Nml inspection Skin: positive: Color nml, Warm, Dry. negative: Cyanosis Extremities: positive: Non-tender, Full ROM, Nml appearance. negative: Calf tenderness Neurologic/Psychiatric: positive: Oriented x3, Motor nml, Sensation nml, Mood/affect nml. negative: Weakness, Sensory loss, Facial droop, Slurred/abnml speech, Depressed mood/affect - LABS Result Diagrams: 07/09/21 05:45 07/09/21 05:45 - FOLLOW UP Follow Up: you have no Respiratory distress. You had 97% oxygen saturation on room air. You may follow-up with [facility] COVID-19 precautions. You may follow-up with your PCP as needed. Should your symptoms return or worsen, or you feel shortness of breath, you may return to ER or call 911 for help. - TIME SPENT Time Spent in Discharge (Minutes): 30
== END 2021-07-09 14:00 | disposition home or self-care (01) | DRG 177 ==
LOC: EDUNIT# → ED 16:50 → MS2 17:54
PROVIDERS: ADMIT Specialist; ATTEND Nurse Practitioner Gerontology
PROC: XW033E5 Introduction of Remdesivir Anti-infective into Peripheral Vein, Percutaneous Approach, New Technology Group 5 (ICD-10-PCS; principal; 2021-07-05)
PROC: 3E0333Z Introduction of Anti-inflammatory into Peripheral Vein, Percutaneous Approach (ICD-10-PCS; 2021-07-05)
DX: U07.1 COVID-19 (principal); J12.82 Pneumonia due to coronavirus disease 2019; R09.02 Hypoxemia; F17.220 Nicotine dependence, chewing tobacco, uncomplicated; G89.29 Other chronic pain; M54.50 Low back pain, unspecified; K21.9 Gastro-esophageal reflux disease without esophagitis; Z79.82 Long term (current) use of aspirin
CPT/HCPCS: 0202U; 36415; 71045; 80048; 82803; 83735; 84100; 85025; 85379; 96374; 99284; 99285; A9270; C9399; J1650; J7120; J8540

== ENCOUNTER 2024-01-05 14:45 | Outpatient (CLI) | payer BC, OTHER ==
--- NOTE | 2024-01-05 17:33 | XRAY Report ---
Cervical Spine 2-3V HISTORY:: 48 years of age, STRAIN OF MUSCLE, FASCIA AND TENDON AT NECK LEVEL TECHNIQUE: Cervical Spine 2-3V COMPARISON: None. FINDINGS/IMPRESSION: Reversal normal cervical spinal lordosis. Mild anterolisthesis of C2 on C3, C3 on C4, and C4-C5. Vert ebral body heights are well-maintained. Multilevel, mild degenerative disc disease of the cervical sp ine, most pronounced at C6-7. No prevertebral soft tissue edema. No significant cervical facet arthro eladio. Reviewed by: Carmen Tian MD on 01/05/2024 5:31 PM PDT Approved by: Carmen Tian MD on 01/05/2024 5:31 PM PDT Station ID: [id number]
--- NOTE | 2024-01-05 17:34 | XRAY Report ---
Lumbar Spine 2-3V HISTORY:: 48 years of age, STRAIN OF MUSCLE, FASCIA AND TENDON OF LOWER BACK TECHNIQUE: Lumbar Spine 2-3V COMPARISON: None. FINDINGS/IMPRESSION: Mild levocurvature of the lumbar spine. Vertebral body heights are well-maintained. Intervertebral di sc space is well-maintained. No significant lumbar facet arthropathy. Reviewed by: Carmen Tian MD on 01/05/2024 5:33 PM PDT Approved by: Carmen Tian MD on 01/05/2024 5:33 PM PDT Station ID: [id number]
== END 2024-01-05 15:00 | disposition home or self-care (01) ==
LOC: DI.N 14:45
PROVIDERS: ATTEND Family Medicine
DX: S39.012A Strain of muscle, fascia and tendon of lower back, initial encounter (principal); M43.12 Spondylolisthesis, cervical region; M50.323 Other cervical disc degeneration at C6-C7 level